=== PATIENT | female | born 1955 | race Caucasian/White ===

== ENCOUNTER → 2024-07-06 10:04 | Outpatient (REF) | payer BC, SELFPAY | LOC: HWWDC 10:04 | PROVIDERS: ATTENDING PHYSICIAN Nurse Practitioner Adult Health | DX: Z12.31 Encounter for screening mammogram for malignant neoplasm of breast (principal); Z76.89 Persons encountering health services in other specified circumstances; Z00.00 Encounter for general adult medical examination without abnormal findings; Z78.0 Asymptomatic menopausal state | CPT/HCPCS: 77063; 77067; 77080 ==

== ENCOUNTER → 2024-08-01 07:24 | Outpatient (REF) | payer BC, SELFPAY | LOC: PAVMRI 07:24 | PROVIDERS: ATTENDING PHYSICIAN Physician Assistant Surgical; FAMILY PHYSICIAN Nurse Practitioner Adult Health | DX: M54.16 Radiculopathy, lumbar region (principal) | CPT/HCPCS: 72148 ==

== ENCOUNTER 2025-03-09 14:24 | Inpatient (IN) | payer BC, SELFPAY ==
[2025-03-09] VITALS (24 sets, daily range): BP systolic 121–212; BP diastolic 66–98
--- NOTE | 2025-03-09 12:58 | ED.GENMED ---
History of Present Illness
General
Chief Complaint: Chest Pain
Time Seen by Provider: 03/09/25 12:56
History of Present Illness
History of Present Illness:
FOCUSED PAST MEDICAL HISTORY
- DM, HTN, hyperlipidemia
REVIEW OF OLD RECORDS
- I reviewed the call in note from Dr. Ac De Jesus; he sent her here due to accelerating angina and EKG at the office showed inferior anterolateral ST depression and T wave inversion.
Note:
CHIEF COMPLAINT(S)
Chest pain and burping.
HISTORY OF PRESENT ILLNESS
The patient is a 69-year-old female who presented with complaints of chest pain and burping. The symptoms started around August to September but have intensified significantly over the past month. The patient reports the chest pain is exacerbated in cold
environments and with exertion, such as walking quickly. She describes the pain as a tightness in the chest that worsened acutely the night before the visit. At the time of the encounter, the patient had chest discomfort and tightness. She denies
prior known coronary artery disease or history of stenting. The patient reports an iodine allergy, which causes skin rashes and blistering when applied. She has undergone imaging with IV contrast without pre-treatment with steroids. She was referred
to a certified nurses' aide after visiting her family doctor. No aspirin was taken prior to arrival, and there was an indication to start nitroglycerin and heparin in anticipation of a potential catheterization procedure. Her current EKG showed abnormalities.
PAST MEDICAL AND SURIGICAL HISTORY
- Diabetes
ADDITIONAL HISTORY OBTAINED FROM SOURCES OTHER THAN THE PATIENT
According to EMS, the patient was referred to the hospital after an abnormal EKG was noted during a visit to a certified nurses' aide.
CHRONIC MEDICAL CONDITIONS SIGNIFICANTLY AFFECTING CARE
- Diabetes
ALLERGIES
- Iodine (causes rash and blistering)
REVIEW OF SYSTEMS
- Cardiovascular: Chest pain, described as tightness, exacerbated by cold and exertion.
- Respiratory: Shortness of breath with exertion.
- Gastrointestinal: Burping.
PHYSICAL EXAM
General: Appears comfortable, alert, no acute distress.
Skin: Warm, dry.
Head: Normocephalic, atraumatic.
Neck: Supple, trachea midline.
Eyes, Ears, Nose, Mouth, and Throat: Oral mucosa moist.
Cardiovascular: Reports tightness in chest, hypertensive.
Respiratory: Lungs clear to auscultation, no edema, respirations are non-labored.
Gastrointestinal: Abdomen nondistended.
Back: Normal range of motion, normal alignment.
Musculoskeletal: Normal range of motion, normal strength.
Neurological: Alert and oriented to person, place, time, and situation, no focal neurological deficit observed.
Psychiatric: Cooperative, appropriate mood and affect.
PROBLEM LIST
Acute:
- Chest pain
- Shortness of breath
Chronic:
- Diabetes
PLAN
The patient is to be managed with nitroglycerin and heparin to alleviate chest pain. Cardiovascular catheterization is anticipated, and the cardiology team is to be notified for further intervention and management.
DIFFERENTIAL DIAGNOSIS
The Differential Diagnosis includes, in no particular order and is not limited to:
- Acute Coronary Syndrome
- Angina Pectoris
- Gastroesophageal Reflux Disease (GERD)
- Esophageal Spasm
- Pulmonary Embolism
- Aortic Dissection
- Pericarditis
- Costochondritis
- Anxiety/Panic Attack
- Heart Failure
RADIOLOGY
- Chest x-ray shows no acute abnormality
EKG
- Sinus [address] depression concerning for ACS with no old to compare
LABS
- Initial troponin less than 0.012
UPDATE
-SUMMARY OF ENCOUNTER
The patient is a 69-year-old female who presented to the emergency department with chest pain and burping. She has been experiencing chest tightness that worsens with cold and exertion, as well as increased burping and shortness of breath over the
past month. No prior history of coronary artery disease was noted. She underwent an EKG, which revealed marked abnormalities suggestive of possible cardiac issues. Given the concern for potential acute coronary syndrome, the patient was administered
heparin, aspirin, and nitroglycerin to manage her symptoms and prepare for potential catheterization. The cardiology team, specifically Dr. Arita, has been consulted and plans to admit the patient to the hospital for further evaluation, monitoring,
and possible catheterization. Due to the patients iodine allergy, the use of steroids was considered important for a potential procedure in the catheterization lab.
DISPOSITION
Admit
ASSESSMENT
The patient presents with symptoms that are concerning for acute coronary syndrome, given the exertional chest pain, abnormal EKG findings, and diabetes history, making her a high-risk candidate.
EMERGENCY TREATMENTS ADMINISTERED
Aspirin, heparin, nitroglycerin.
MANAGEMENT OF THE PATIENTS CARE WAS DISCUSSED WITH
Discussion held with Dr. Arita from cardiology regarding the patients treatment plan and potential catheterization.
PLAN
The patient is to be admitted to the cardiology service for further evaluation and potential cardiac catheterization. The patient is to remain NPO in preparation for the procedure, with considerations for applying steroids in the catheterization lab
due to her iodine allergy.
MEDICATION RECONCILIATION
1. Aspirin administered.
2. Heparin administered.
3. Nitroglycerin administered.
MEDICAL DECISION MAKING
1. Number and Complexity of Problems Addressed: Chronic conditions affecting care include diabetes. Differential diagnosis considerations span acute coronary syndrome, angina pectoris, gastroesophageal reflux disease, esophageal spasm, pulmonary
embolism, aortic dissection, pericarditis, costochondritis, anxiety/panic attack, and heart failure.
2. Data:
Category 1:
- Reviewed patients EKG, showing marked abnormalities.
- External information obtained supports current diagnosis and management.
Category 2:
- Independent history obtained from EMS records.
Category 3:
- Discussion of management plan with Dr. Arita from cardiology regarding further evaluation and admission.
3. Risk:
- Decisions regarding the use of emergency treatments, such as anticoagulants (heparin) and vasodilators (nitroglycerin), and the plan to admit and conduct a potential catheterization, reflect a high risk of morbidity if not managed appropriately.
DIAGNOSIS
Acute Coronary Syndrome (ICD-10: I20.0)
Phy Exam
Physical Exam
Physical Exam:
See HPI
Scores
Heart Score for Chest Pain Patients
STEMI patient?: Not applicable
Course
Orders/Labs/Results
Orders:
Orders
03/09/25 12:43
EKG [Electrocardiogram (*1)] Urgent
Reason for Study: Chest Pain
03/09/25 12:44
EKG- Treatment ONCE
03/09/25 12:56
Chest X-ray Portable [CR Chest Portable - 1 View] Stat
Comment:
Reason For Exam: cp
Reason Study Needs to be Portable: Patient Unstable
03/09/25 12:58
Nitroglycerin 100 mg/250 ml [Nitroglycerin Premix] 100 mg in 250 ml .ROUTE .STK-MED
03/09/25 13:00
Nitroglycerin 100 mg/250 ml [Nitroglycerin Premix] 100 mg in 250 ml IV PER PROTOCOL
Initial dose in mcg/min, then titrate:: 10
Titrate to keep:: Chest Pain Free
Titrate by mcg/min:: 5 mcg/min, may increase by 10 mcg/min if dose > 20 mcg/min
Frequency of titrations (minutes):: every 3-5 minutes
Maximum dose in mcg/min:: 200
Begin to taper infusion when:: Remained at goal for 2hrs
Taper by mcg/min:: 5 mcg/min
Frequency of taper (minutes) if patient maintains goal:: 30
Taper to off?: Yes
If infusion off & no longer maintaining goal:: Contact Provider
03/09/25 13:08
Complete Blood Count/With Diff Urgent
Comprehensive Metabolic Panel Urgent
Troponin I Urgent
03/09/25 13:19
Type+Screen Urgent
PTT Urgent
Prothrombin Time Urgent
03/09/25 13:47
Diphenhydramine [Benadryl] 50 mg IV NOW STA
Hydrocortisone Sod Succinate [Solu-Cortef] 200 mg IV NOW STA
03/09/25 13:51
Admit/Transfer Patient As Directed
Co-Sign Provider:
Level of Care: Inpatient admission
Assign to:: IVU
Physician / Group: do
Diagnosis: chest pain
Reason for Hospitalization: chest pain
Expected length of stay greater than two midnights?: Yes
ELOS- Estimated Length of Stay in days: 3
I certify the patient meets the requirements for IP care: Yes
PRN Pain Medication Management As Directed
May give lesser potent ordered pain med per pt: Yes
preference::
Protocol:: Medication orders for pain may be administered in a
manner that supports deferring to patient preference
when the pt is:
- Requesting an ordered lesser potent pain medication.
Least to most potent pain medications are defined
as: acetaminophen < NSAID < tramadol < opioids
(morphine, oxycodone, hydromorphone).
- Requesting a lesser dose of the same medication IF
ORDERED.
- Requesting a less intrusive route of administration
if both routes are prescribed by the provider (PO <
IV).
03/09/25 13:52
Code Status As Directed
Resuscitation Status: Full Code
03/09/25 Dinner
NPO
Allow oral meds: Yes
Allow clear liquids: Sips of Clears
NPO with Ice Chips: No
Abnormal Lab Results
03/09/25
13:08
Abs Immat Gran (auto) 0.1 H 10^3/uL
(0-0.05)
Absolute Neuts (auto) 7.2 H 10^3/uL
(1.4-6.5)
Immature Gran % 0.6 H %
(0-0.5)
Glucose 147 H mg/dl
(70-99)
Total Protein 8.6 H g/dl
(6.3-8.2)
03/09/25 13:08
03/09/25 13:08
Vital Signs
Initial and Last Documented VS:
Initial Vital Signs
Temp Pulse Resp BP Pulse Ox
36.6 C 84 18 212/93 97
03/09/25 12:50 03/09/25 12:50 03/09/25 12:50 03/09/25 12:50 03/09/25 12:50
Last Documented Vital Signs
Temp Pulse Resp BP Pulse Ox
36.6 C 86 15 155/83 98
03/09/25 12:50 03/09/25 13:30 03/09/25 13:30 03/09/25 13:30 03/09/25 13:30
*Pulse Oximetry
SaO2: 97
Oxygen Mode of Delivery: Room air
Patient hypoxic: no
*Critical Care Note
Total Time (30-74mins, 75-104mins- exclusive of procedures): Not Applicable
ED Attending Note
-
Portions of this chart may have been created with voice recognition software.� Occasional wrong word or��sound alike� substitutions may have occurred due to the inherent limitations of voice recognition software.
Discharge Plan
Departure
Patient Disposition: Admit
Date of Disposition: 03/09/25
Time of Disposition: 13:10
Presentation/result/management discussed w/ accepting MD/DO: CBC
Discharge Problem:
ACS (acute coronary syndrome)
Prescriptions:
No Action
esomeprazole magnesium [Nexium] 40 MG capsule,delayed release(DR/EC)
40 mg PO QPM
cholecalciferol (vitamin D3) [Vitamin D3] 2,000 UNIT capsule
2,000 unit PO QPM
metformin 500 mg Tablet
1,000 mg PO DAILY
metformin 500 mg Tablet
1,500 mg PO QPM
atorvastatin [Lipitor] 20 mg Tablet
20 mg PO QPM
cetirizine [Zyrtec] 10 mg Tablet
10 mg PO DAILY
amlodipine [Norvasc] 5 mg Tablet
5 mg PO QPM
aspirin 81 mg Tablet,Delayed Release (Dr/Ec)
81 mg PO QPM
losartan-hydrochlorothiazide 100-12.5 mg Tablet
1 tab PO DAILY
Visbiome 112.5 billion cell Capsule
1 cap PO DAILY
insulin degludec [Tresiba FlexTouch U-100] 100 unit/mL (3 mL) Insulin Pen
25 unit SC BID
Fiber Gummies 2 gram Tablet,Chewable
5 g PO DAILY
turmeric 400 mg Capsule
400 mg PO BID
Ozempic 1 mg/dose (4 mg/3 mL) Pen Injector
1 mg SC TU
biotin 2,500 mcg Tablet,Chewable
2,500 mcg PO DAILY
magnesium glycinate 120 mg Capsule
400 mg PO DAILY
Referrals:
UNKNOWN - PT NOT,INTERVIEWE [Unknown Provider]
Interventions
Interventions:
*Risk Screen - Suicide Last Done: 03/09/25 12:50
*General Assessment Last Done: 03/09/25 12:50
*Neglect/Abuse Screening Last Done: 03/09/25 12:50
*ED- Fall Risk Assessment Last Done: 03/09/25 13:28
*ED COVID-19 Vaccine History Last Done: 03/09/25 13:28
*ED Influenza Vaccine History Last Done: 03/09/25 13:28
ED- Cardiac Assessment Last Done: 03/09/25 13:13
Discharge Date and Time
Print Language: UGANDAN
[2025-03-09] MEDS: NITROGLYCERIN PREMIX 250 IV (13:06)
--- NOTE | 2025-03-09 13:15 | HPS.HSE ---
Addendum entered and electronically signed by Graham Trivedi MD 03/09/25 16:38:
69-year-old female with a past medical history of diabetes, hypertension, hyperlipidemia, and GERD was sent by her play writer for worsening exertional chest pain, shortness of breath, and burping.
Her EKG was markedly abnormal, and cardiology plans to take her for cardiac catheterization today.
Patient is allergic to iodine, she has severe vomiting and diarrhea with it.
She has insulin-dependent type 2 diabetes.
Will premedicate with IV Solu-Cortef, IV Benadryl, expect steroid-induced hyperglycemia.
Keep n.p.o., start IV heparin drip, continue nitroglycerin drip, trend troponins, trend EKG.
I have personally seen and examined the patient, and agree with the plan of care as documented by GIANNA Stevens.
Advance care planning discussed, patient is a full code.
All other issues as outlined by the advanced care practitioner.
Total time spent to see the patient on the floor, examine the patient, review data and lab results, discuss treatment plan with patient, nursing staff around 76 minutes.
Original Note:
Family Physician
-
Family Physician: INTERVIEWE UNKNOWN - PT NOT
Chief Complaint
-
chest discomfort
History of Present Illness
69-year-old female with PMH for HTn, HLD, DM type 2 presented to us with mid sternum chest tightness only with activity progressively worsening for past one month. patient denied non radiating pain. stated sob with exertion as well. patient
stated the pain got worse yesterday while she was out yesterday. today she was evaluated by cardiology, recommended ER visit.patient stated burping with stress. patient stated lot of stress for past few months as well. Patient denies any headache,
dizzy or syncope. Patient denied any fever, chills, cough, congestion. Patient denied abdominal pain, nausea, vomiting or diarrhea. Patient denied dysuria hematuria
initiated on iv with improvement in her pain.admitting for further management.
Medical History
Past Medical History
Past Medical History: Reports Other
Additional Past Medical History:
GERD, iron deficiency, HTN, DM, HLD, liver disease, Schatzki ring, HLD,diverticulosis, lumbar fusion, kdiney stones,
Past Surgical History: Reports Other
Additional Past Surgical History:
right partial knee replacement, right carpal release, removal of bone spur right shoulder, right ulnar nerve release and transposition, bilateral foot surgery, right partial knee replacement. left rotator cuff repair, right rotator cuff repair,
L3-L5 fusion, back surgery fusion,
Social History
Tobacco: Non-smoker
Alcohol: None
Drug: None
Personal:
Living: With Family
Family History
Family History: Not pertinent
Allergies / Home Medications
Allergies reflects when Allergies were last updated in [employer].
Home Medications with original date entered in [employer]
Allergy/Medication List:
Allergies
Allergy/AdvReac Type Severity Reaction Status Date / Time
alcohol (From Mastisol Allergy Intermediate Rash Verified 03/09/25 12:49
Adhesive)
gum mastic (From Mastisol Allergy Intermediate Rash Verified 03/09/25 12:49
Adhesive)
iodine Allergy Intermediate Rash Verified 03/09/25 12:49
methyl salicylate (From Allergy Intermediate Rash Verified 03/09/25 12:49
Mastisol Adhesive)
storax (From Mastisol Allergy Intermediate Rash Verified 03/09/25 12:49
Adhesive)
cold Allergy Unknown Uncoded 10/29/18 13:15
seafood Allergy Nausea / Uncoded 10/29/18 13:15
Vomiting
Home Medications
cholecalciferol (vitamin D3) 50 mcg (2,000 unit) capsule (Vitamin D3) 2,000 unit PO QPM Supplement 10/29/18
esomeprazole magnesium 40 mg capsule,delayed release (Nexium) 40 mg PO QPM Gastrointestinal Issue 10/29/18
Lactobac no.2-Bifidobac no.1-S. thermo 112.5 billion cell capsule (Visbiome) 1 cap PO DAILY Supplement 03/09/25
amlodipine 5 mg tablet (Norvasc) 5 mg PO QPM Blood Pressure 03/09/25
aspirin 81 mg tablet,delayed release 81 mg PO QPM Blood Clot Prevention/Tx 03/09/25
atorvastatin 20 mg tablet (Lipitor) 20 mg PO QPM High Cholesterol 03/09/25
biotin 2,500 mcg chewable tablet 2,500 mcg PO DAILY Supplement 03/09/25
cetirizine 10 mg tablet (Zyrtec) 10 mg PO DAILY Allergies 03/09/25
insulin degludec 100 unit/mL (3 mL) subcutaneous pen (Tresiba FlexTouch U-100 insulin) 25 unit SC BID Diabetes 03/09/25
inulin 2 gram chewable tablet 5 g PO DAILY Supplement 03/09/25
losartan 100 mg-hydrochlorothiazide 12.5 mg tablet 1 tab PO DAILY Blood Pressure 03/09/25
magnesium glycinate 120 mg (as glycinate) capsule 400 mg PO DAILY Supplement 03/09/25
metformin 500 mg tablet 1,000 mg PO DAILY Diabetes 03/09/25
metformin 500 mg tablet 1,500 mg PO QPM Diabetes 03/09/25
semaglutide 1 mg/dose (4 mg/3 mL) subcutaneous pen injector (Ozempic) 1 mg SC TU Diabetes 03/09/25
turmeric 400 mg capsule 400 mg PO BID Supplement 03/09/25
Review of Systems
-
Constitutional: Reports No Symptoms
EENT: Reports No Symptoms
Respiratory: Reports No Symptoms and Trouble Breathing
Cardiac: Reports Chest Pain
Abdomen/GI: Reports No Symptoms
: Reports No Symptoms
Musculoskeletal: Reports No Symptoms
Skin: Reports No Symptoms
Neurological: Reports No Symptoms
Endocrine: Reports No Symptoms
Hematologic/Lymphatic: Reports No Symptoms
Psych: Reports No Symptoms
Physical Exam
Vital Signs
Vital Signs
Temp Pulse Resp BP Pulse Ox
97.9 F 87 20 187/76 94
03/09/25 12:50 03/09/25 13:01 03/09/25 13:01 03/09/25 13:00 03/09/25 13:01
Physical Exam
General: Well Developed, Well Nourished and No Apparent Distress
HEENT: NormoCephalic, Moist mucous membranes and Atraumatic
Respiratory: Clear
Cardiac: S1/S2 and Regular Rhythm; No Murmur or Rub
GI: Soft, Non Tender, Non Distended and Normal Bowel Sounds; No Organomegaly
Rectal: Deferred by Provider
Musculoskeletal: No Clubbing, No Cyanosis and No Edema
Skin: No Rash
Neuro: Nonfocal/grossly intact
Data Reviewed
-
Lab Data: Labs Reviewed by me
Impression/Plan
-
#chest pain r/o NSTEMI
-asa, nitro drip, heparin drip
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
-cardiology consulted
-trend trop and EKG
- We will premedicate with hydrocortisone and Benadryl prior to cardiac cath
# Essential hypertension
- Norvasc continue with hold parameters
- Losartan/hydrochlorothiazide continue
# Hyperlipidemia
- Atorvastatin continue
#GERD
- PPI continued
# Type 2 diabetes
- Tresiba continued
- Sliding scale
- Hold metformin
# DVT prophylaxis
- Heparin subcu
#CODE STATUS
- Full code
[2025-03-09 13:18] LABS: Hematocrit 41.5 % (37.0-47.0); Hemoglobin 13.8 g/dL (12.0-16.0); Mean Corp Hgb Conc. 33.3 g/dL (33.0-37.0); Mean Corpuscular Volume 85.2 fL (81.0-99.0); Nucleated Red Blood Cells % 0 %; Platelet Count 365 10^3/uL (130-400); Red Cell Dist. Width 13.6 % (11.5-14.5)
[2025-03-09 13:32] LABS: ALT (SGPT) 21 U/L (0-35); AST (SGOT) 20 U/L (14-36); Albumin 5.0 g/dl (3.5-5.0); Alkaline Phosphatase 63 U/L (38-126); Blood Urea Nitrogen 16 mg/dl (7-17); Calcium 10.1 mg/dl (8.4-10.2); Carbon Dioxide 25 mmol/L (22-30); Chloride 100 mmol/L (98-107); Glucose 147 mg/dl (70-99); Potassium 3.7 mmol/L (3.5-5.1); Sodium 135 mmol/L (135-145); Total Protein 8.6 g/dl (6.3-8.2); eGFR > 60.00
[2025-03-09 13:45] LABS: Troponin I < 0.012 ng/ml
[2025-03-09 13:53] LABS: INR 0.99; PT 13.4 Sec (11.4-14.6)
[2025-03-09 13:54] LABS: APTT 29.9 Sec (23.4-35.0)
[2025-03-09] MEDS: SOLU-CORTEF 200 MG IV (14:01)
[2025-03-09] MEDS: BENADRYL 50 MG IV (14:01)
--- NOTE | 2025-03-09 14:33 | W.PN.CD ---
Addendum entered and electronically signed by Khoi Bills MD 03/09/25 17:29:
I saw and evaluated the patient, and I provided the substantive portion of the medical decision making.
I reviewed and agree with the note by GIANNA Barraza and it accurately reflects our care.
I personally performed the medical decision making of the this encounter and my assessment and plan is below:
Pain free now
Sent from office with impressive story, abnormal ekg and multiple risk factors
For cath
Original Note:
Today's Communication / Plan
-
*This is the consultation summary. Please see scanned consultation.*
Cardiac catheterization today.
Impression / Plan
-
I/P: 69F with HTN, IDDM, HLD, GERD, and orthopedic surgeries who presented for evaluation of exertional chest pain with associated LAMB in the cardiology office. She was referred to the emergency department for accelerating symptoms and EKG changes
in the inferior and anterolateral leads.
Primary spray gunner: Dr. De Jesus
Accelerating angina
- Chest discomfort with associated LAMB and burping, present since August worsening with rest discomfort
- EKG with inferior and anterolateral changes
- Troponin <0.012
- Echocardiogram
- Cardiac catheterization today
Hypertension
- BP currently stable, follow
Type 2 diabetes mellitus, with hyperglycemia, on insulin, HgbA1c pending
HLD, on atorvastatin 20 mg, may need to escalate therapy pending cardiac catheterization results, fasting lipid panel in a.m.
GERD, chronic, on Nexium
Obesity, BMI 33
Physical Exam
Vital Signs/Labs
Vital Signs
Temp Pulse Resp BP Pulse Ox
97.9 F 86 15 155/83 98
03/09/25 12:50 03/09/25 13:30 03/09/25 13:30 03/09/25 13:30 03/09/25 13:30
03/08/25 03/09/2503/10/25
06:59 06:59 06:59
Actual Weight 101.3 kg
03/09/25 13:08
03/09/25 13:08
PT 13.4 Sec (11.4-14.6) 03/09/25 13:19
INR 0.99 03/09/25 13:19
APTT 29.9 Sec (23.4-35.0) 03/09/25 13:19
LAB Results
03/09/25
13:08
Troponin I < 0.012
Physical Exam
Constitutional: No acute distress and Comfortable
EENT: Anicteric and Moist mucous membranes
Cardiovascular: Rhythm & rate is regular and Pedal edema is absent
Respiratory: Respiratory effort normal and Lungs clear to auscul.
GI: Soft, Distention absent, Flat, Non tender and Normal bowel sounds
Neuro/Psych: AO x 3
Other: Skin (Warm and dry without edema)
Data Reviewed
-
Date of Service: March 09, 2025
EKG: Report Reviewed by me
Labs: Labs Reviewed by me
Old Records: Reviewed
[2025-03-09] MEDS: HEPARIN 25000 UNITS/250 ML IV ×2 (15:10→22:09)
[2025-03-09] MEDS: HEPARIN 4000 UNITS IV (15:11)
--- NOTE | 2025-03-09 16:49 | CONSULT.CT ---
Consultation
-
Date/Time Consultation Requested: 03/09 1644
Date/Time Consultation Performed: 03/09 1650
Requesting Provider: Antoinette HAM
Performing Provider: Luis Armando Steve MD
Reason for Consultation: CABG Evaluation
Patient History
Physicians
Family Physician: Dr. Rosa Robles
Outpatient Photographic Hand Developer: Dr. De Jesus
Inpatient Photographic Hand Developer: Dr. De Jesus
History of Present Illness
69 y/o female with PMHx for HTN, IDDM, HLD, and multiple back surgeries has been having intermittent chest discomfort and burping for a few months. She initially presented to [facility] with an abnormal EKG from PCP and complaints of LAMB
and chest discomfort. She was send to [facility] ER from the meat cutter office. Troponin were negative in the ER. Echocardiogram was preformed and she was taken to the cardiac vat house laborer. LHC revealed MVD and CT surgery was consulted for surgical
evaluation.
Past Medical History
Past Medical History: Other
obesity, type 2 diabetes Home chronic GERD, HTN, liver disease, Schatzki's ring�dilatation, hyperlipidemia, HNP C4-C5, C5-C6, C6-C7 fusions in 1989, lumbar fusion, impaired swallowing since neck surgeries, diverticulosis,
Past Surgical History
Past Surgical History: Orthopedic
Family History
Family Medical History: CAD
Social History
Alcohol: Occasional
Drug: None
Tobacco: Non-Smoker
Personal:
Living: With Spouse
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
Allergies
Allergy/AdvReac Type Severity Reaction Status Date / Time
alcohol (From Mastisol Allergy Rash Verified 03/09/25 16:44
Adhesive)
gum mastic (From Mastisol Allergy Rash Verified 03/09/25 16:44
Adhesive)
iodine Allergy Rash Verified 03/09/25 16:44
methyl salicylate (From Allergy Rash Verified 03/09/25 16:44
Mastisol Adhesive)
storax (From Mastisol Allergy Rash Verified 03/09/25 16:44
Adhesive)
cold Allergy Unknown Uncoded 10/29/18 13:15
seafood Allergy Nausea / Uncoded 10/29/18 13:15
Vomiting
Home Medications
�Medication �Instructions �Recorded �Confirmed �Type
cholecalciferol (vitamin D3) 50 2,000 unit PO QPM Supplement 10/29/18 03/09/25 History
mcg (2,000 unit) capsule (Vitamin
D3)
esomeprazole magnesium 40 mg 40 mg PO QPM Gastrointestinal Issue 10/29/18 03/09/25 History
capsule,delayed release (Nexium)
Lactobac no.2-Bifidobac no.1-S. 1 cap PO DAILY Supplement 03/09/25 03/09/25 History
thermo 112.5 billion cell capsule
(Visbiome)
amlodipine 5 mg tablet (Norvasc) 5 mg PO QPM Blood Pressure 03/09/25 03/09/25 History
aspirin 81 mg tablet,delayed 81 mg PO QPM Blood Clot 03/09/25 03/09/25 History
release Prevention/Tx
atorvastatin 20 mg tablet (Lipitor) 20 mg PO QPM High Cholesterol 03/09/25 03/09/25 History
biotin 2,500 mcg chewable tablet 2,500 mcg PO DAILY Supplement 03/09/25 03/09/25 History
cetirizine 10 mg tablet (Zyrtec) 10 mg PO DAILY Allergies 03/09/25 03/09/25 History
insulin degludec 100 unit/mL (3 25 unit SC BID Diabetes 03/09/25 03/09/25 History
mL) subcutaneous pen (Tresiba
FlexTouch U-100 insulin)
inulin 2 gram chewable tablet 5 g PO DAILY Supplement 03/09/25 03/09/25 History
losartan 100 1 tab PO DAILY Blood Pressure 03/09/25 03/09/25 History
mg-hydrochlorothiazide 12.5 mg
tablet
magnesium glycinate 120 mg (as 400 mg PO DAILY Supplement 03/09/25 03/09/25 History
glycinate) capsule
metformin 500 mg tablet 1,000 mg PO DAILY Diabetes 03/09/25 03/09/25 History
metformin 500 mg tablet 1,500 mg PO QPM Diabetes 03/09/25 03/09/25 History
semaglutide 1 mg/dose (4 mg/3 mL) 1 mg SC TU Diabetes 03/09/25 03/09/25 History
subcutaneous pen injector (Ozempic)
turmeric 400 mg capsule 400 mg PO BID Supplement 03/09/25 03/09/25 History
Review of Systems
-
History Source: Patient
General: Reports Fatigue
HEENT: Reports No Symptoms
Respiratory: Reports SOB and LAMB
Cardiac: Reports Chest Pain
Abdomen/GI: Reports Reflux
: Reports No Symptoms
Musculoskeletal: Reports Joint Pain
Skin: Reports No Symptoms
Neurological: Reports No Symptoms
Vascular: Reports No Symptoms
Physical Exam
Vital Signs
Temp 97.9 F 03/09/25 12:50
Temp route: Oral 03/09/25 12:50
Pulse 106 03/09/25 16:00
Resp Rate 20 03/09/25 16:00
Blood pressure 161/82 03/09/25 16:00
MAP (cuff-Shannen Monitor) 101 03/09/25 16:00
SaO2 97 03/09/25 16:00
Oxygen Mode of Delivery Room air 03/09/25 12:59
Actual Weight 101.3 kg 03/09/25 13:00
Labs
03/09/25 13:08
03/09/25 13:08
PT 13.4 Sec (11.4-14.6) 03/09/25 13:19
APTT 29.9 Sec (23.4-35.0) 03/09/25 13:19
Troponin I < 0.012 ng/ml 03/09/25 13:08
Exam
General: Well Developed and Well Nourished
HEENT: Normocephalic
Respiratory: Clear
Cardiac: S1/S2 and Regular Rhythm
GI: Soft
Rectal: Deferred by Provider
Skin: Warm and Dry
Neuro: AO x 3
Lymph: No Lymphadenopathy
Psych: Calm
Assessment / Plan
-
69 y/o female with PMHx listed above presented to [facility] after being seen in the cardiology office with complaints of LAMB and chest discomfort. LHC reveal MVD and CT Surgery was consulted for surgical evaluation.
#CAD
-Patient's case will be discussed with attending physician. Further details regarding surgical timing intervention will be determined after attending physicians full evaluation
-Routine preoperative cardiothoracic surgery orders will be initiated.
-STS risk stratification score will be calculated after preoperative testing is complete
-Continue nitroglycerin gtt per cardiology
#DM II
- continue insuliin during work up.
#HTN
- Hold ARBs/STEPHANIE
--- NOTE | 2025-03-09 17:02 | ITS.CL.PN ---
Sales Marketing Coordinator - Procedure Note
Procedure
Procedure Note:
CARDIAC CATHETERIZATION REPORT
Date of Procedure: 03/09/2025
Referring: Dr. Ac De Jesus DO
Indication: Accelerating angina
PROCEDURE(S)
1. left heart catheterization
2. coronary angiography
ACCESS: 6F right radial artery (closure: radial band)
CATHETERS
1. 6F JR4
2. 6F JL4
MODERATE SEDATION: 25 minutes of moderate sedation was utilized. An independent medical customer service representative was present to assist with and help manage the patient's level of consciousness and physiologic status.
HEMODYNAMIC DATA
LV 153/9 (EDP 16) mmHg
AO 144/82 (mean 110) mmHg
CORONARY ANGIOGRAPHY
Dominance: right
LM: Large vessel with severe distal LM bifurcation disease (Almaraz 0,1,1) as further described below.
LAD: Large vessel giving rise to a moderate caliber D1 and wrapping around the apex. There is eccentric distal LM vs. ostial LAD disease that is likely mild-moderate in severity. There is a long segment of disease in the proximal LAD up to 80%.
LCx: Large vessel giving rise to a moderate caliber OM1 and moderate caliber OM2. There is a focal 95% stenosis in the ostial LCx with TIMI2 flow distally. There is a smooth 30% stenosis leading into the body of OM2.
RCA: Large vessel giving rise to moderate caliber RPDA, moderate caliber RPL1, moderate caliber RPL2, and small RPL3. There is a long segment of up to 80% disease in the [id number] RCA. The proximal RPDA has a long 40-50% stenosis.
RADIATION: dose 746 mGy; DAP 40.2 Gy*cm2; fluoroscopy time 4.3 min
CONCLUSIONS
1. Triple vessel coronary artery disease as defined with likely culprit ostial LCx stenosis.
2. Mildly elevated LV filling pressure and no aortic stenosis.
RECOMMENDATIONS
1. CT surgery consultation for consideration of surgical revascularization, ideally with ARGUELLO-LAD and additional grafts to the OM1(+/-OM2), RPDA, and RPL1 or 2.
2. Cont. heparin, metoprolol, ASA, statin
3. Do not give P2Y12 agents or RASS agents pending CT surgery
Copy to: Dr. Ac De Jesus MD (fast food shift lead); Anne Robles NP (PCP)
Signed: Leandro Curry MD, PhD
[2025-03-09 18:00] LABS: Glucose - Point of Care 146 mg/dl (70-99)
[2025-03-09] MEDS: LIPITOR 40 MG PO (18:25)
[2025-03-09] MEDS: NORVASC 5 MG PO (18:25)
[2025-03-09] MEDS: ASPIR LOW (ENTERIC COATED) 81 MG PO (18:26)
[2025-03-09] MEDS: PROTONIX 40 MG PO (18:26)
[2025-03-09 18:30] LABS: Troponin I < 0.012 ng/ml
--- NOTE | 2025-03-09 19:21 | PTCARENOTE ---
Received pt from [facility] into 2250. AAOx3 SR on the monitor Nitro gtt on for CP see flowsheet. Rt Radial TR band in place distal pulse ox 95%. POC discussed with pt. Call jensen within reach
[2025-03-09] MEDS: LANTUS 0.2 UNITS SC (20:07)
[2025-03-09 20:08] LABS: Glucose - Point of Care 144 mg/dl (70-99)
[2025-03-09 21:38] LABS: Troponin I 0.017 ng/ml
[2025-03-09 22:53] LABS: Glucose - Point of Care 153 mg/dl (70-99)
[2025-03-09] MEDS: MELATONIN 3 MG PO (23:06)
--- NOTE | 2025-03-09 23:11 | PTCARENOTE ---
Received patient at change of shift. ST on the monitor, HR in the 100s. R radial band removed as per protocol, R radial dressing CDI. Nitro running as per protocol, see documentation. No chest pain at this time. Heparin restarted as per order, see
documentation. No complaints from pt at this time, call jensen within reach.
[2025-03-10] VITALS (8 sets, daily range): BP systolic 112–158; BP diastolic 67–79; BMI 32.8
[2025-03-10 04:37] LABS: Hematocrit 34.3 % (37.0-47.0); Hemoglobin 11.9 g/dL (12.0-16.0); Mean Corp Hgb Conc. 34.7 g/dL (33.0-37.0); Mean Corpuscular Volume 83.9 fL (81.0-99.0); Platelet Count 314 10^3/uL (130-400); Red Cell Dist. Width 13.5 % (11.5-14.5)
[2025-03-10 05:05] LABS: ALT (SGPT) 18 U/L (0-35); AST (SGOT) 17 U/L (14-36); Albumin 4.1 g/dl (3.5-5.0); Alkaline Phosphatase 53 U/L (38-126); Blood Urea Nitrogen 18 mg/dl (7-17); Calcium 9.5 mg/dl (8.4-10.2); Carbon Dioxide 24 mmol/L (22-30); Chloride 106 mmol/L (98-107); Estimated Creatinine Clearance 80 ml/min; Glucose 93 mg/dl (70-99); HDL Cholesterol 30 mg/dl; LDL Cholesterol, Calculated 84 mg/dl; Potassium 3.6 mmol/L (3.5-5.1); Sodium 137 mmol/L (135-145); Total Protein 6.8 g/dl (6.3-8.2); Very Low Density Lipoprotein 35 mg/dl (0-30); eGFR > 60.00
[2025-03-10 05:13] LABS: INR 1.03; PT 13.8 Sec (11.4-14.6)
[2025-03-10 05:14] LABS: APTT 37.9 Sec (23.4-35.0)
[2025-03-10] MEDS: ORETIC 12.5 MG PO (07:43)
--- NOTE | 2025-03-10 08:28 | W.PN.CD ---
Today's Communication / Plan
-
Echo.
Surgical planning.
Impression / Plan
-
Impression/Plan: 69F with HTN, IDDM, HLD, GERD, and orthopedic surgeries admitted from office with accelerating/unstable angina, found to have severe multivessel CAD.
Primary technology development intern: Dr. De Jesus
#Accelerating angina/CAD
-New diagnosis, threat to life.
-Chest discomfort with associated LAMB and eructation, present since May worsening with rest discomfort.
-EKG with inferior and anterolateral changes.
-Troponin = 0.017.
-Cath shows severe multivessel CAD.
-CT surgery consulted.
-Continue amlodipine, atorvastatin, heparin gtt, nitro gtt.
-Echo pending.
#Hypertension
-Chronic, stable.
-Continue amlodipine, HCTZ, nitroglycerin.
#Type 2 diabetes mellitus
-Chronic, stable.
-Insulin per protocol.
-HgbA1c pending.
#HLD
-Chronic.
-Total cholesterol = 149, LDL = 84, HDL = 30, Triglycerides = 175.
-Continue atorvastatin 40 mg.
-Goal LDL < 55.
#GERD
-Chronic, stable.
-Continue PPI.
#Obesity
-Chronic, stable, BMI 33.
-Weight loss recommended.
-There is now an indication for GLP-1 analog.
Subjective/Interval History:
Admitted from office yesterday.
Cath shows severe multivessel CAD.
DATA:
Cardiac Catheterization, 03/09/2025:
CORONARY ANGIOGRAPHY
Dominance: right
LM: Large vessel with severe distal LM bifurcation disease (Almaraz 0,1,1) as further described below.
LAD: Large vessel giving rise to a moderate caliber D1 and wrapping around the apex. There is eccentric distal LM vs. ostial LAD disease that is likely mild-moderate in severity. There is a long segment of disease in the proximal LAD up to 80%.
LCx: Large vessel giving rise to a moderate caliber OM1 and moderate caliber OM2. There is a focal 95% stenosis in the ostial LCx with TIMI2 flow distally. There is a smooth 30% stenosis leading into the body of OM2.
RCA: Large vessel giving rise to moderate caliber RPDA, moderate caliber RPL1, moderate caliber RPL2, and small RPL3. There is a long segment of up to 80% disease in the [id number]-[id number] RCA. The proximal RPDA has a long 40-50% stenosis.
CONCLUSIONS
1. Triple vessel coronary artery disease as defined with likely culprit ostial LCx stenosis.
2. Mildly elevated LV filling pressure and no aortic stenosis.
Physical Exam
Vital Signs/Labs
Vital Signs
Temp Pulse Resp BP Pulse Ox
36.7 C 69 20 132/79 93
03/10/25 07:19 03/10/25 04:30 03/10/25 07:19 03/10/25 04:18 03/10/25 07:19
03/08/25 03/09/25 03/10/25
11:59 11:59 11:59
Actual Weight 97.8 kg
03/10/25 04:28
03/10/25 04:28
PT 13.8 Sec (11.4-14.6) 03/10/25 04:27
INR 1.03 03/10/25 04:27
APTT 37.9 Sec (23.4-35.0) H 03/10/25 04:27
Triglycerides 175 mg/dl (10-149) H 03/10/25 04:28
LDL Cholesterol, Calc 84 mg/dl 03/10/25 04:28
VLDL Cholesterol, Calc 35 mg/dl (0-30) H 03/10/25 04:28
HDL Cholesterol 30 mg/dl 03/10/25 04:28
LAB Results
03/09/25 03/09/25 03/09/25
13:08 17:58 21:05
Troponin I < 0.012 < 0.012 0.017 D
03/09/25
23:27
Troponin I Cancelled
Physical Exam
Constitutional: No acute distress and Comfortable
EENT: Anicteric and Moist mucous membranes
Cardiovascular: Rhythm & rate is regular, Pedal edema is absent, JVD pressure is normal, S1S2 is normal and Murmur/rub/gallop absent
Respiratory: Respiratory effort normal, Lungs clear to auscul., Wheeze Absent, Crackles Absent and Rhonchi Absent
GI: Soft, Distention absent, Flat, Non tender and Normal bowel sounds
Neuro/Psych: AO x 3
Other: Cath Site (Right radial access site is C/D/I.)
Data Reviewed
-
Date of Service: March 10, 2025
Medical Decision Making: Reviewed Test Results, Independent Historian Assessment and Test Interpretation
EKG: Tracing Personally Visualized and interpreted and Report Reviewed by me
X-Ray/CT/US/MRI/NUC/PET: Image Personally Visualized and interpreted and Report Reviewed by me
Medical Tests (PFT, Pathology etc): Image Personally Visualized and interpreted, Report Reviewed by me and Discussed with Patient
Labs: Labs Reviewed by me
Old Records: Reviewed
[2025-03-10 09:03] LABS: Glycohemoglobin (HgbA1c) 6.6 % (4.0-5.9)
[2025-03-10 09:18] LABS: Glucose - Point of Care 118 mg/dl (70-99)
--- NOTE | 2025-03-10 09:29 | W.PN.HOSP.TC ---
Today's Communication/Plan
-
see bold
Assessment / Plan
Assessment / Plan
HPI: 69F with HTN, IDDM, HLD, GERD, and orthopedic surgeries sent to ED from office with accelerating/unstable angina, found to have severe multivessel CAD.
Primary infrastructure security architect: Dr. De Jesus
#Multivessel CAD/accelerating angina
Troponins negative, EKG showing inferior and anterolateral changes
Appreciate cardiology input, 03/09 cardiac catheterization showing multivessel coronary artery disease
CT surgery consulted for possible surgical intervention
Continue amlodipine, atorvastatin, heparin gtt, nitro gtt.
#Hyperlipidemia
LDL 84
Goal LDL less than 55
Home atorvastatin 20 mg increased to 40 mg daily
#Essential hypertension
Continue amlodipine, hydrochlorothiazide
Holding losartan
#Type 2 diabetes
Hemoglobin A1c controlled at 6.6
Continue home insulin regimen, carb controlled diet
Hold metformin
#GERD
Continue PPI
#Obesity due to excess calories
Affects all aspects of care
DVT prophylaxis�heparin drip
Full code
Total time spent to see the patient on the floor, examine the patient, review data and lab results, discuss treatment plan with patient, nursing staff around 36 minutes.
Physical Exam
General: Obese, no acute distress
HEENT: Normocephalic, Atraumatic, EOMI, MMM
Respiratory: Clear to Auscultation bilaterally
Cardiac: Normal S1/S2, Regular Rate and Rhythm
GI: Soft, Nontender, Nondistended, Normal Bowel Sounds
Extremities: No Clubbing, Cyanosis, or Edema
Neuro: Nonfocal/Grossly Intact
Psych: Calm, Cooperative
Anticipated Discharge: > 48 hours
Subjective/Interval History
-
Date of Service: March 10, 2025
Patient reports that her chest pain and dyspnea with exertion have resolved. Her burping has improved. No abdominal pain. No fever, no vomiting.
Objective Data
-
Labs:
Laboratory Results
03/10/25 03/10/25 03/10/25
04:27 04:28 12:00
WBC 10.9 H
Hgb 11.9 L
Hct 34.3 L
Plt Count 314
PT 13.8
INR 1.03
APTT 37.9 H Pending
Sodium 137
Potassium 3.6
Chloride 106
Carbon Dioxide 24
BUN 18 H
Creatinine 0.8
Glucose 93
Calcium 9.5
Total Bilirubin 0.5
AST 17
ALT 18
Alkaline Phosphatase 53
Vital Signs:
Vital Signs
Temp Pulse Resp BP Pulse Ox
98.1 F 73 20 134/70 93
03/10/25 07:19 03/10/25 08:45 03/10/25 07:19 03/10/25 07:19 03/10/25 07:19
I&O
03/09/25 03/10/25 03/11/25
06:59 06:59 06:59
Output Total 300 / 300
Balance -300 / -300
[2025-03-10] MEDS: LANTUS 0.2 UNITS SC ×2 (10:00→21:07)
--- NOTE | 2025-03-10 10:30 | CM ---
Chart reviewed. Patient is independent of ADLS, lives with her in a 1 story mobile home, 1.5 VIANCA, patient had a lumbar fusion in the past and has been doing outpatient PT ever since at [facility], patient ambulates with with
a SPC for long distances and also has crutches.
Reviewed preoperative and postoperative instructions and restrictions, along with showering guidelines. Gave patient a Cardiac Surgery Book. Patient is agreeable to a home visit by CT Transitional RN. PANKAJ to follow
[2025-03-10 12:29] LABS: Glucose - Point of Care 152 mg/dl (70-99)
[2025-03-10 12:53] LABS: APTT 24.8 Sec (23.4-35.0)
[2025-03-10 13:58] LABS: Glucose - Point of Care 126 mg/dl (70-99)
--- NOTE | 2025-03-10 14:24 | W.PN.UPDATE ---
Update Note
Progress Note Update
Procedure Type:�Isolated CABG
Perioperative Outcome Estimate %
Operative Mortality 1.43%
Morbidity & Mortality 6.47%
Stroke 1.11%
Renal Failure 0.921%
Reoperation 1.48%
Prolonged Ventilation 3.33%
Deep Sternal Wound Infection 0.712%
Long Hospital Stay (>14 days) 3.95%
Short Hospital Stay (<6 days)* 39.3%
Clinical Summary
Planned Surgery: Isolated CABG, Urgent, First cardiovascular surgery
Demographics: 69 year old, female, 101kg, 173cm, BMI: 33.8 kg/m�
Lab Values: Creatinine: 0.8 mg/dL, Hematocrit: 34.3%, WBC Count: 10.9 10�/�L, Platelet Count: 118032 cells/�L
PreOp Medications: Insulin diabetes control
Substance Abuse: Former smoker, Alcohol use: <=1 drink/week
Risk Factors / Comorbidities: Insulin-dependent Diabetes Mellitus, Hypertension, Family Hx of CAD
Coronary Artery Disease: 3 vessels diseased, Left Main Stenosis >=50%, Proximal LAD Stenosis >=70%, Unstable Angina, DC: > 21 Days
Valve Disease: Trivial/Trace MR, Trivial/Trace TR
.
Tentative surgery date is 03/[address] Steve
[2025-03-10 14:51] LABS: Hepatitis C Antibody Negative (Negative)
--- NOTE | 2025-03-10 16:25 | W.CVOR.SURPR ---
CVOR Surgeon Immed Pre Op
-
I have examined this patient prior to performance of the scheduled procedure.
The patient's condition is unchanged from the time of the dictated/written History and
Physical and the patient is able to undergo the scheduled procedure.
Mrs. Hicks is a very pleasant 69-year-old female with coronary artery disease with escalating symptoms presented through [facility] emergency department after visit with her test lead application testing for ongoing worsening symptoms. Other medical problems include
hypertension, type 2 diabetes, hyperlipidemia and GERD. Her workup here shows ST changes in the lateral leads with T wave inversions in the inferior and anterior leads, cath with multivessel disease in her LAD, ostial circumflex, and RCA. I
reviewed her echo which notes normal EF without significant regional wall motion abnormalities and no valvular disease. Her surgical workup is nonconcerning, CT chest does show her ascending aorta slightly enlarged at 4 cm. I have discussed with
her about the benefits of surgical revascularization given her extent of disease and diabetes, noting mortality benefit with surgical intervention. I think she will do well and can recover from this operation. I have discussed the specifics of her
procedure and have gone through all the risks associated including but not limited to stroke, risk of bleeding, risk of infection, pulmonary related complications, and kidney injury. She has acceptable surgical risk, with operative mortality 1.4%.
She and her both understand and wish to proceed with an operation which we will do tomorrow morning.
[2025-03-10 17:30] LABS: Glucose - Point of Care 149 mg/dl (70-99)
[2025-03-10] MEDS: LIPITOR 40 MG PO (17:44)
[2025-03-10] MEDS: ASPIR LOW (ENTERIC COATED) 81 MG PO (17:44)
[2025-03-10] MEDS: HEPARIN 25000 UNITS/250 ML IV (17:45)
[2025-03-10] MEDS: PROTONIX 40 MG PO (17:49)
--- NOTE | 2025-03-10 18:06 | PTCARENOTE ---
~8596-7160: handoff report received from nightshift RN. PT Aox4, NSR 70s-80s, SBP 130s, RA satting 97%. +2 pulses. no edema noted. Patient does not c/o pain at this time. Heparin gtt infusing at 1200, nitro gtt infusing at 30. R radial site CDI and
soft. patient standby assit to bathroom. Weight obtained this AM. Patient tacken to CT scan and US for preop testing via stretcher. All needs met at this time, call jensen within reach.
~[id number]: Patient returned to unit via stretcher from US and CT scan. Dr De Jesus in to speak with patient about plan of care. Patient taken via stretcher for ECHO.
~[id number]: PTT drawn and sent to lab. Heparin gtt titrated per protocol. CTS in to speak with patient about plan for surgery tomorrow AM. Patient scheduled to be NPO at 0000. Patient OOB in chair.
~[id number]: Family at bedside visiting. Belongings packed up and brought to new room in CVICU. Patient will be prepped for surgery overnight and to CVOR tomorrow. Handoff report given to receiving nurse.
--- NOTE | 2025-03-10 19:45 | PTCARENOTE ---
assumed care of pt from previous RN. pt A&Ox4, resting in chair at time of assessment. SR on tele-monitor. POX 93% on RA. abd s/n, +BS. PIV x2 intact. see worklist for complete nursing assessment, interventions, gtt titrations, VS, and I&Os. plan of
care discussed w/ pt, pt in agreement.
[2025-03-10 19:59] LABS: APTT 43.7 Sec (23.4-35.0)
--- NOTE | 2025-03-10 21:00 | PTCARENOTE ---
pt clipped for CVOR. washed w/ CHG soap.
[2025-03-10 21:08] LABS: Glucose - Point of Care 172 mg/dl (70-99)
[2025-03-10] MEDS: MELATONIN 3 MG PO (21:53)
[2025-03-11] VITALS (14 sets, daily range): BP systolic 84–170; BP diastolic 51–85; BMI 34.0
[2025-03-11 02:31] LABS: Hematocrit 36.2 % (37.0-47.0); Hemoglobin 11.9 g/dL (12.0-16.0); Mean Corp Hgb Conc. 32.9 g/dL (33.0-37.0); Mean Corpuscular Volume 87.0 fL (81.0-99.0); Platelet Count 297 10^3/uL (130-400); Red Cell Dist. Width 13.6 % (11.5-14.5)
[2025-03-11 02:42] LABS: APTT 72.2 Sec (23.4-35.0)
[2025-03-11 03:00] LABS: Blood Urea Nitrogen 18 mg/dl (7-17); Calcium 9.6 mg/dl (8.4-10.2); Carbon Dioxide 26 mmol/L (22-30); Chloride 103 mmol/L (98-107); Estimated Creatinine Clearance 90 ml/min; Glucose 126 mg/dl (70-99); Potassium 3.6 mmol/L (3.5-5.1); Sodium 134 mmol/L (135-145); eGFR > 60.00
[2025-03-11] MEDS: MAGNESIUM OXIDE 400 MG PO (05:08)
[2025-03-11] MEDS: KCL 40 MEQ PO (05:08)
[2025-03-11] MEDS: LOPRESSOR 25 MG PO (05:08)
[2025-03-11] MEDS: PROTONIX 40 MG PO (05:08)
[2025-03-11] MEDS: BACTROBAN 2% OINTMENT 1 APPLIC NASAL ×2 (05:18→20:03)
[2025-03-11 07:07] LABS: ACT+ - POC 137 Seconds (82-134)
[2025-03-11 07:43] LABS: Urine Character Clear (Clear)
--- NOTE | 2025-03-11 08:10 | CM ---
Reviewed chart. Mrs. Hicks is in the operating room today. Prior to admission she resides with her spouse in a mobile home with two steps to enter. Will need to see her functional level after surgery to see if she will have any skilled care needs.
Medical work-up in progress. The discharge plan is undetermined at this time.
[2025-03-11 08:37] LABS: Urine Squamous Cell 0-2 /LPF (Few); Urine Urothelial Cell 0-2 /LPF (FEW)
[2025-03-11 08:38] LABS: Urine Red Blood Cell 0-2 /HPF (0-2)
[2025-03-11 09:06] LABS: ACT+ - POC 444 Seconds (82-134)
[2025-03-11 09:39] LABS: B.E. - POC -3.0 mmol/L; Glucose - POC 157 mg/dl (70-99); HCO3 - POC 22 mmol/L (21-28); Hematocrit - POC 35 % PCV (37-47); Hemodilution- POC No; Hemoglobin Calculated - POC 11.7; Ionized Calcium - POC 1.30 mmol/L (1.15-1.33); Lactate - POC 1.10 mmol/L (0.36-0.75); O2 Saturation %Calculated-POC 99.7 % (94-98); PCO2 - POC 40 mmHg (35-48); PO2 - POC 205 mmHg (83-108); POC Comment PRE; Potassium - POC 3.3 mmol/L (3.5-5.1); Sodium - POC 138 mmol/L (136-145); Specimen Type - POC Arterial; pH - POC 7.35 (7.35-7.45)
[2025-03-11 10:02] LABS: ACT+ - POC 534 Seconds (82-134)
[2025-03-11 10:02] LABS: ACT+ - POC 520 Seconds (82-134)
[2025-03-11 10:08] LABS: B.E. - POC 2.2 mmol/L; Glucose - POC 146 mg/dl (70-99); HCO3 - POC 27 mmol/L (21-28); Hematocrit - POC 26 % PCV (37-47); Hemodilution- POC Yes; Hemoglobin Calculated - POC 9.0; Ionized Calcium - POC 1.09 mmol/L (1.15-1.33); Lactate - POC 1.68 mmol/L (0.36-0.75); O2 Saturation %Calculated-POC 100.0 % (94-98); PCO2 - POC 39 mmHg (35-48); PO2 - POC 454 mmHg (83-108); POC Comment CPB; Potassium - POC 4.5 mmol/L (3.5-5.1); Sodium - POC 137 mmol/L (136-145); Specimen Type - POC Arterial; pH - POC 7.44 (7.35-7.45)
[2025-03-11 10:18] LABS: ACT+ - POC 500 Seconds (82-134)
[2025-03-11 10:29] LABS: B.E. - POC 0.9 mmol/L; Glucose - POC 201 mg/dl (70-99); HCO3 - POC 25 mmol/L (21-28); Hematocrit - POC 30 % PCV (37-47); Hemodilution- POC Yes; Hemoglobin Calculated - POC 10.2; Ionized Calcium - POC 1.13 mmol/L (1.15-1.33); Lactate - POC 1.49 mmol/L (0.36-0.75); O2 Saturation %Calculated-POC 99.8 % (94-98); PCO2 - POC 39 mmHg (35-48); PO2 - POC 213 mmHg (83-108); POC Comment CPB; Potassium - POC 5.3 mmol/L (3.5-5.1); Sodium - POC 139 mmol/L (136-145); Specimen Type - POC Arterial; pH - POC 7.42 (7.35-7.45)
[2025-03-11 10:36] LABS: ACT+ - POC 497 Seconds (82-134)
[2025-03-11 11:08] LABS: B.E. - POC -0.6 mmol/L; Glucose - POC 197 mg/dl (70-99); HCO3 - POC 24 mmol/L (21-28); Hematocrit - POC 29 % PCV (37-47); Hemodilution- POC Yes; Hemoglobin Calculated - POC 9.9; Ionized Calcium - POC 1.19 mmol/L (1.15-1.33); Lactate - POC 1.17 mmol/L (0.36-0.75); O2 Saturation %Calculated-POC 99.8 % (94-98); PCO2 - POC 38 mmHg (35-48); PO2 - POC 240 mmHg (83-108); POC Comment WARM; Potassium - POC 4.4 mmol/L (3.5-5.1); Sodium - POC 136 mmol/L (136-145); Specimen Type - POC Arterial; pH - POC 7.41 (7.35-7.45)
[2025-03-11 11:15] LABS: ACT+ - POC 456 Seconds (82-134)
[2025-03-11 11:35] LABS: B.E. - POC -1.9 mmol/L; Glucose - POC 209 mg/dl (70-99); HCO3 - POC 23 mmol/L (21-28); Hematocrit - POC 31 % PCV (37-47); Hemodilution- POC Yes; Hemoglobin Calculated - POC 10.7; Ionized Calcium - POC 1.33 mmol/L (1.15-1.33); Lactate - POC 2.19 mmol/L (0.36-0.75); O2 Saturation %Calculated-POC 99.9 % (94-98); PCO2 - POC 41 mmHg (35-48); PO2 - POC 274 mmHg (83-108); POC Comment CPB; Potassium - POC 5.0 mmol/L (3.5-5.1); Sodium - POC 140 mmol/L (136-145); Specimen Type - POC Arterial; pH - POC 7.36 (7.35-7.45)
[2025-03-11] MEDS: LANTUS SC (11:37)
[2025-03-11] MEDS: ORETIC PO (11:37)
[2025-03-11 11:40] LABS: ACT+ - POC 140 Seconds (82-134)
--- NOTE | 2025-03-11 11:50 | W.PN.CD ---
Today's Communication / Plan
-
CABG today.
Anticipate routine post operative management.
Impression / Plan
-
Impression/Plan: 69F with HTN, IDDM, HLD, GERD, and orthopedic surgeries admitted from office with accelerating/unstable angina, found to have severe multivessel CAD.
Primary physician anesthesiologist: Dr. De Jesus
#Accelerating angina/CAD
-New diagnosis, threat to life.
-Chest discomfort with associated LAMB and eructation, present since May worsening with rest discomfort.
-EKG with inferior and anterolateral changes.
-Troponin = 0.017.
-Cath shows severe multivessel CAD.
-CABG today.
-Anticipate routine post operative management.
-Wean vent to extubation.
-Titrate pressors/inotropes to MAP > 65 mmHg, CI > 1.8 L/min/m2.
#Hypertension
-Chronic, stable.
-Continue amlodipine, HCTZ, nitroglycerin.
#Type 2 diabetes mellitus
-Chronic, stable.
-Insulin per protocol.
-HgbA1c pending.
#HLD
-Chronic.
-Total cholesterol = 149, LDL = 84, HDL = 30, Triglycerides = 175.
-Continue atorvastatin 40 mg.
-Goal LDL < 55.
#GERD
-Chronic, stable.
-Continue PPI.
#Obesity
-Chronic, stable, BMI 33.
-Weight loss recommended.
-There is now an indication for GLP-1 analog.
Subjective/Interval History:
CABG today.
DATA:
Cardiac Catheterization, 03/09/2025:
CORONARY ANGIOGRAPHY
Dominance: right
LM: Large vessel with severe distal LM bifurcation disease (Almaraz 0,1,1) as further described below.
LAD: Large vessel giving rise to a moderate caliber D1 and wrapping around the apex. There is eccentric distal LM vs. ostial LAD disease that is likely mild-moderate in severity. There is a long segment of disease in the proximal LAD up to 80%.
LCx: Large vessel giving rise to a moderate caliber OM1 and moderate caliber OM2. There is a focal 95% stenosis in the ostial LCx with TIMI2 flow distally. There is a smooth 30% stenosis leading into the body of OM2.
RCA: Large vessel giving rise to moderate caliber RPDA, moderate caliber RPL1, moderate caliber RPL2, and small RPL3. There is a long segment of up to 80% disease in the [id number] RCA. The proximal RPDA has a long 40-50% stenosis.
CONCLUSIONS
1. Triple vessel coronary artery disease as defined with likely culprit ostial LCx stenosis.
2. Mildly elevated LV filling pressure and no aortic stenosis.
CT Chest, 03/10/2025:
IMPRESSION:
Fusiform aneurysmal dilatation of the ascending aorta measuring up to 4 cm.
Subtle pulmonary parenchymal mosaic attenuation which is nonspecific, though may be associated with obstructive small airway disease, or other nonspecific pulmonary parenchymal disease.
Right upper lobe 5 mm pulmonary nodule. Left upper lobe 3.5 mm nodule.
2.2 cm right adrenal benign adenoma.
Carotid Artery Duplex, 03/10/2025:
IMPRESSION: Negative for flow-limiting carotid stenosis. By velocity criteria, any internal carotid artery stenosis present is in the range of 0-49%.
TTE, 03/10/2025:
SUMMARY
1. Normal biventricular size and systolic function without regional wall motion abnormality. LVEF 68%.
2. No significant valvular disease.
3. Ascending aorta measures 4.2 cm.
4. No prior study available for comparison.
Physical Exam
Vital Signs/Labs
Vital Signs
Temp Pulse Resp BP Pulse Ox
36.6 C 75 16 170/85 95
03/11/25 04:53 03/11/25 05:08 03/11/25 04:53 03/11/25 05:08 03/11/25 04:53
03/09/25 03/10/25 03/11/25
11:59 11:59 11:59
Actual Weight 97.8 kg 96.9 kg
PT 13.8 Sec (11.4-14.6) 03/10/25 04:27
INR 1.03 03/10/25 04:27
APTT Cancelled 03/11/25 09:00
Triglycerides 175 mg/dl (10-149) H 03/10/25 04:28
LDL Cholesterol, Calc 84 mg/dl 03/10/25 04:28
VLDL Cholesterol, Calc 35 mg/dl (0-30) H 03/10/25 04:28
HDL Cholesterol 30 mg/dl 03/10/25 04:28
LAB Results
03/09/25 03/09/25 03/09/25
13:08 17:58 21:05
Troponin I < 0.012 < 0.012 0.017 D
03/09/25
23:27
Troponin I Cancelled
Physical Exam
Constitutional: No acute distress and Comfortable
EENT: Other (ET tube in place.)
Neuro/Psych: Other (Intubated/sedated.)
Patient is currently undergoing CABG. Exam limited.
Data Reviewed
-
Date of Service: March 11, 2025
Medical Decision Making: Reviewed Test Results and Test Interpretation
EKG: Tracing Personally Visualized and interpreted and Report Reviewed by me
Echo: Tracing Personally Visualized and interpreted and Report Reviewed by me
X-Ray/CT/US/MRI/NUC/PET: Image Personally Visualized and interpreted and Report Reviewed by me
Medical Tests (PFT, Pathology etc): Image Personally Visualized and interpreted and Report Reviewed by me
Labs: Labs Reviewed by me
Old Records: Reviewed
[2025-03-11 11:52] LABS: B.E. - POC -3.2 mmol/L; Glucose - POC 184 mg/dl (70-99); HCO3 - POC 22 mmol/L (21-28); Hematocrit - POC 29 % PCV (37-47); Hemodilution- POC Yes; Hemoglobin Calculated - POC 10.0; Ionized Calcium - POC 1.32 mmol/L (1.15-1.33); Lactate - POC 2.37 mmol/L (0.36-0.75); O2 Saturation %Calculated-POC 100.0 % (94-98); PCO2 - POC 37 mmHg (35-48); PO2 - POC 410 mmHg (83-108); Potassium - POC 3.8 mmol/L (3.5-5.1); Sodium - POC 139 mmol/L (136-145); Specimen Type - POC Arterial; pH - POC 7.38 (7.35-7.45)
--- NOTE | 2025-03-11 12:10 | CON.INTV ---
Consultation
Consultation Request
Date/Time Consultation Requested: 03/11/2025 - 113
Date/Time Consultation Performed: 03/11/2025 - 1201
Requesting Provider: Jenny Greco PA-C
Performing Provider: Dr. Batista
Reason for Consultation: s/p CABG x3
Medical History
-
Chief Complaint: Chest pain
History of Present Illness:
69-year-old female with a past medical history of DM type II, hypertension, mixed hyperlipidemia, history of C4-5 anterior fusion, history of kidney stones, Schatzki's ring s/p dilation, cold urticaria, and obesity who presented with midsternal
chest pain and increased belching. Her chest pain has been progressively worsening and she was sent to the ER from cardiology office. Patient saw Dr. De Jesus for initial visit on 03/09/2025, and Cardiology was concerned about her accelerating
symptoms with EKG changes in the inferior and anterolateral leads, and he recommended that she go to the ER at that time. EKG showed inferior anterolateral T wave inversions with ST depressions. Troponin was negative x 2 and then 0.017 on the
third blood draw. Cardiology was consulted and patient was recommended for left heart catheterization. Patient was given 200 mg hydrocortisone, 50 mg Benadryl (due to contrast allergy with impending CTA chest) and nitroglycerin drip started in the
ER. Initial CTA chest showed pulmonary mosaic attenuation with a right upper lobe 5 mm lung nodule and a left upper lobe 3.5 mm nodule. Left heart catheterization on 03/09/2025 showed triple-vessel CAD with likely culprit ostial LCx stenosis with
mildly elevated LV filling pressures with no aortic stenosis. CT surgery consult recommended. Patient agreed to this procedure and today she underwent CABG x 3 with left atrial appendage ligation with atrial clip device. Patient tolerated the
procedure well and was transferred to the CVICU postoperatively with electronics test engineer service consulted for additional management/recommendations.
When I saw the patient she was currently on a CPAP trial on 08/31 at 40% FiO2, with PIP 12 cmH2O, breathing at 20 breaths/min and VTe 410 cc. Current heart rate 76, BP via A-line (right radial) 98/54, PAP 25/15, CVP: 10, CO/CI: 3.22/1.56,
respectively, and SpO2: 96%. Currently on Levophed at 1 mcg/min.
PMHx: GERD, hypertension, liver disease, Schatzki's ring s/p dilatation, hyperlipidemia, history of torn right medial meniscus s/p arthroscopy, lumbar fusion (2019), impaired swallowing since neck surgeries in the past, diverticulosis, history of
kidney stones, DM type II
PSHx: Right partial knee replacement (2006+ 2012), right carpal tunnel release and trigger finger release ( 9), removal of bone spur of right shoulder (2003), right ulnar nerve release and transposition (2006+2009), bilateral foot surgery, left
ulnar nerve release and carpal tunnel release, left rotator cuff repair, right knee arthroscopy, C4-5 anterior fusion (2005), right rotator cuff repair, L3-5 fusion, L2-S1 fusion (06/2022)
Past Medical History
Past Medical History: Other (Above as per HPI)
Past Surgical History: Other (Above as per HPI)
Social History
Tobacco: Non-smoker
Alcohol: Occasional
Drug: None
Family History
Family History: CAD (Mother + sibling), Cancer (Bladder, colon and esophageal cancer (father); Sister: Oral cancer), Diabetes (Mother) and Other (Sibling: A-fib)
Allergies / Home Medications
Allergies
Allergy/AdvReac Type Severity Reaction Status Date / Time
alcohol (From Mastisol Allergy Rash Verified 03/09/25 16:44
Adhesive)
gum mastic (From Mastisol Allergy Rash Verified 03/09/25 16:44
Adhesive)
iodine Allergy Rash Verified 03/09/25 16:44
methyl salicylate (From Allergy Rash Verified 03/09/25 16:44
Mastisol Adhesive)
storax (From Mastisol Allergy Rash Verified 03/09/25 16:44
Adhesive)
cold Allergy Unknown Uncoded 10/29/18 13:15
seafood Allergy Nausea / Uncoded 10/29/18 13:15
Vomiting
Home Medications
�Medication �Instructions �Recorded �Confirmed �Last Taken �Type
cholecalciferol (vitamin D3) 50 2,000 unit PO QPM Supplement 10/29/18 03/09/25 03/08/25 History
mcg (2,000 unit) capsule (Vitamin
D3)
esomeprazole magnesium 40 mg 40 mg PO QPM Gastrointestinal Issue 10/29/18 03/09/25 03/08/25 History
capsule,delayed release (Nexium)
Lactobac no.2-Bifidobac no.1-S. 1 cap PO DAILY Supplement 03/09/25 03/09/25 03/09/25 History
thermo 112.5 billion cell capsule
(Visbiome)
amlodipine 5 mg tablet (Norvasc) 5 mg PO QPM Blood Pressure 03/09/25 03/09/25 03/08/25 History
aspirin 81 mg tablet,delayed 81 mg PO QPM Blood Clot 03/09/25 03/09/25 03/08/25 History
release Prevention/Tx
atorvastatin 20 mg tablet (Lipitor) 20 mg PO QPM High Cholesterol 03/09/25 03/09/25 03/08/25 History
biotin 2,500 mcg chewable tablet 2,500 mcg PO DAILY Supplement 03/09/25 03/09/25 03/09/25 History
cetirizine 10 mg tablet (Zyrtec) 10 mg PO DAILY Allergies 03/09/25 03/09/25 03/09/25 History
insulin degludec 100 unit/mL (3 25 unit SC BID Diabetes 03/09/25 03/09/25 03/09/25 History
mL) subcutaneous pen (Tresiba
FlexTouch U-100 insulin)
inulin 2 gram chewable tablet 5 g PO DAILY Supplement 03/09/25 03/09/25 03/09/25 History
losartan 100 1 tab PO DAILY Blood Pressure 03/09/25 03/09/25 03/09/25 History
mg-hydrochlorothiazide 12.5 mg
tablet
magnesium glycinate 120 mg (as 400 mg PO DAILY Supplement 03/09/25 03/09/25 03/09/25 History
glycinate) capsule
metformin 500 mg tablet 1,000 mg PO DAILY Diabetes 03/09/25 03/09/25 03/09/25 History
metformin 500 mg tablet 1,500 mg PO QPM Diabetes 03/09/25 03/09/25 03/08/25 History
semaglutide 1 mg/dose (4 mg/3 mL) 1 mg SC TU Diabetes 03/09/25 03/09/25 03/02/25 History
subcutaneous pen injector (Ozempic)
turmeric 400 mg capsule 400 mg PO BID Supplement 03/09/25 03/09/25 03/09/25 History
Review of Systems
-
Unable to Obtain full review of systems at this time due to: Patient Intubation
Vitals / Labs / Diagnostic Testing
Vital Signs
Temp Pulse Resp BP Pulse Ox
97.9 F 75 16 170/85 95
03/11/25 04:53 03/11/25 05:08 03/11/25 04:53 03/11/25 05:08 03/11/25 04:53
Laboratory Results
03/10/25 03/10/25 03/11/25
12:33 19:40 02:20
APTT 24.8 43.7 H 72.2 H
03/11/25
09:00
APTT Cancelled
Diagnostic Testing:
Physical Exam
-
HEENT: Normocephalic, Anicteric and Other (ETT in place)
Cardiovascular: S1/S2 and Peripheral Edema (negative)
Respiratory: Wheeze (negative), Rhonchi (negative), Non-Labored Respirations, Other (Mechanical breath sounds heard bilaterally) and Other (Left pleural chest tube + mediastinal chest tubes x 2)
GI: Soft, Non Distended, Non Tender and Normal Bowel Sounds
Neurology: Tremors (negative) and Other (Sedated)
Skin: Warm and Dry
General: Respiratory Distress (negative), Fever (negative) and Chills (negative)
Assessment
-
Assessment: 69-year-old female with a past medical history of DM type II, hypertension, mixed hyperlipidemia, history of C4-5 anterior fusion, history of kidney stones, Schatzki's ring s/p dilation, cold urticaria, and obesity who presented with
midsternal chest pain and increased belching. Her chest pain has been progressively worsening and she was sent to the ER from cardiology office. Patient saw Dr. De Jesus for initial visit on 03/09/2025, and Cardiology was concerned about her
accelerating symptoms with EKG changes in the inferior and anterolateral leads, and he recommended that she go to the ER at that time. EKG showed inferior anterolateral T wave inversions with ST depressions. Troponin was negative x 2 and then
0.017 on the third blood draw. Cardiology was consulted and patient was recommended for left heart catheterization. Patient was given 200 mg hydrocortisone, 50 mg Benadryl (due to contrast allergy with impending CTA chest) and nitroglycerin drip
started in the ER. Initial CTA chest showed pulmonary mosaic attenuation with a right upper lobe 5 mm lung nodule and a left upper lobe 3.5 mm nodule. Left heart catheterization on 03/09/2025 showed triple-vessel CAD with likely culprit ostial LCx
stenosis with mildly elevated LV filling pressures with no aortic stenosis. CT surgery consult recommended. Patient agreed to this procedure and today she underwent CABG x 3 with left atrial appendage ligation with atrial clip device. Patient
tolerated the procedure well and was transferred to the CVICU postoperatively with electronics test engineer service consulted for additional management/recommendations.
Chronic conditions [employer]: GERD, hypertension, liver disease, Schatzki's ring s/p dilatation, hyperlipidemia, history of torn right medial meniscus s/p arthroscopy, lumbar fusion (2019), impaired swallowing since neck surgeries in the past,
diverticulosis, history of kidney stones, DM type II
Impression:
#Multivessel CAD s/p CABG x 3 (in situ ARGUELLO to LAD, Ao to RSVG to OM1, Ao to RSVG to RPLB) and left atrial appendage ligation with atrial clip � POD #0
#Anemia
#Multiple lung nodules with 5 mm in right upper lobe and 3.5 mm in left upper lobe
#DM type II c/b hyperglycemia (mild)
#Hypertension
#Hyperlipidemia
#Schatzki's ring
#GERD
Plan:
Ventilator settings reviewed
FiO2 will be weaned to maintain SpO2 >90-94%
Minute ventilation will be adjusted
Arterial blood gases will be monitored
Spontaneous breathing trial will be attempted with hopeful extubation after anesthesia/sedation wear off
prn nebulized bronchodilators - not currently bronchospastic
Pulmonary artery catheter parameters will be followed
Pressors/antihypertensive/inotropes/diuretics will be provided as needed
Maintain MAP>65
Replete electrolytes with K>4, Mg>2
Monitor chest tube output
Monitor hemoglobin
Monitor platelet count and coags
Transfuse blood products as needed to maintain Hb>7g/dL, plt>50k (given post-operative status)
CT surgery managing chest tubes (left pleural x1 + mediastinal chest tubes x 2)
Monitor blood sugar to maintain euglycemia with goal BG 110-140
Insulin drip per protocol
Aspiration precautions
VAP prevention protocol
DVT prophylaxis
Early nutrition
Early mobilization
Of note, I will arrange for outpatient pulmonary office follow-up regarding her lung nodules.
Critical care statement: A total of 38 minutes of critical care time was provided for this patient today. This includes management of ventilator, spontaneous breathing trial, arterial blood gases, pressors, of unstable vital signs, evaluation of the
patient at bedside, reviewing the patient's pertinent medical records including radiographs, microbiology, laboratory evaluations, and discussion with primary team and critical care nursing.
[2025-03-11] MEDS: NOVOLOG FLEXPEN SC ×2 (12:24→15:53)
[2025-03-11] MEDS: ZYRTEC PO (12:24)
[2025-03-11] MEDS: NEURONTIN PO ×2 (12:24→15:53)
--- NOTE | 2025-03-11 12:34 | W.PN.CT.SURG ---
CT Surgery Operative Note
-
CARDIAC SURGERY OPERATIVE REPORT
Preoperative Diagnosis: Multivessel Coronary Artery Disease with unstable angina with associated EKG changes
Postoperative Diagnosis: Same
Procedure(s) Performed:
1. Standard Sternotomy with Aortic and Right Atrial Cannulation
2. Internal Mammary Artery Harvesting, Left
3. Coronary artery bypass grafting x 3 (In situ ARGUELOL to LAD, Ao to RSVG to OM1, Ao to RSVG to RPLB)
4. Endoscopic vein harvesting of right saphenous vein
5. Left atrial appendage ligation with atriclip device
6. Placement of Temporary Ventricular Pacing Wires
Date of Surgery: 03/11/2025
Comorbidities:
1. Hypertension
2. Hyperlipidemia
3. DM type II
4. Schatzki's ring
5. GERD
6. Liver disease
Attending Surgeon: Staci Steve MD, MPH
Assistants: Gigi Flores PA-C (present and necessary to first line supervisor, endoscopic vein harvest, retraction, suction, exposure, suture management, and wound closure under my direction)
Anesthesiology: Rajat Hawkins MD and Briana Landers CRNA
Scrub and Circulating RNs: Julienne Newsome RN, Anayeli Merino, TUYET
Blow Machine Tender Starch Spraying: Raul Diaz CCP
Anesthesia: GETA
EBL: per perfusion records
Products: None
CPB Time: 115 minutes
Aortic Cross Clamp Time: 77 minutes
Indication(s) for Procedures: 69-year-old female with history of hypertension, hyperlipidemia and type 2 diabetes presented outpatient for cardiology consult given ongoing symptoms of chest pain, shortness of breath with EKG changes in the lateral
wall suggestive of ongoing ischemia. She was sent to [facility] emergency department for emergent cath. Left heart cath with significant distal disease into an ostial circumflex significant lesion, and additional mid to proximal LAD lesion in addition
to mid to distal RCA lesion. Her preoperative echo was notable for normal function, no regional wall motion abnormalities and no significant valvular disease.
Conduit(s) Quality:
ARGUELLO -excellent conduit with very good flow
RSVG -vein is on the larger side but no significant varicosities no sclerosis
Target(s) Quality:
RPLB -her inferior wall had a significant posterior lateral branch that was large in addition to some smaller RPL branches and PDA. [place] the PDA was too small and would be better served grafting the large RPL branch that would feed the entire
system. The vessel was free of disease and our arteriotomy and could easily pass a 1 mm probe. Had excellent flow after the anastomosis with 50 cc at 80 mmHg giving cardioplegia and flow probe noting 29 cc a minute with a PI of 2.5.
OM1 -this was a decently sized vessel that had bifurcating branches distally, there was an easily accessible area proximal to the branching that we chose to anastomose which was free of disease and would easily pass a 1 mm probe. Flow through this
vessel after anastomosis was 35 cc at a pressure of 80 mmHg or giving cardioplegia, flow probe 43 cc a minute with PI of 1.3.
LAD -large vessel with 1 large diagonal branch that was noted, arteriotomy without disease and excellent lumen. Flow down the anastomosis using flow probe device 28 cc a minute with a PI of 2.8.
Findings: We did not place a MANUELA probe given her history of a Schatzki's ring requiring dilations and some difficulty with swallowing. A Cameron catheter was placed which showed normal hemodynamics including PA pressure and CVP, this was used to
monitor the patient throughout the case and while coming off bypass. She came off bypass with no issues, minimal support and hemodynamics at baseline, normal sinus rhythm without ST changes. The ARGUELLO was harvested in a skeletonized fashion.
Following bypass grafting, test dose cardioplegia was given down each distal and confirmed patency and hemostasis. Each distal was probed both proximally and distally to confirm disease and patency, respectively.
Description of Procedure: The patient was taken to the operating room. Their identity and procedure to be performed were verified and they were positioned supine on the operating table. Induction via general anesthesia with endotracheal intubation
was performed and central venous access and arterial monitoring were inserted. The patient was then prepped and draped from chin to feet in a sterile fashion. A preoperative time-out was performed with all members of the team present. A midline
chest incision was performed along with median sternotomy. Simultaneous endoscopic access of the right lower extremity for saphenous vein harvest was obtained along with administration of an initial 5,000 units of IV heparin. A RulTract sternal
retractor was positioned to expose the left internal mammary bed. The mammary was harvested and found to have good flow. A bulldog clamp was applied to the distal end of the mammary after dividing it. It was wrapped in a papaverine soaked RayTec and
replaced back into the left hemithorax. The RulTract was exchanged for a median sternal retractor. The innominate vein was isolated. Full heparinization was given (a total of [] units). We created a pericardial well. The aortic cannulation site was
chosen where it was soft, pliable, and free of calcium. Cannulation was performed with an arterial cannula in the ascending aorta and a triple-stage venous cannula through the right atrial appendage. The arterial cannula line had an appropriate
bounce and correlating pressures with test dosing. Next, a root vent/antegrade cannula was inserted into the ascending aorta. The ACT was confirmed to be over 400 and retrograde autologous priming was performed before commencing cardiopulmonary
bypass. The pulmonary artery was away from the aorta to facilitate a clamp site. The aortic cross-clamp was placed after decreasing the flow on the bypass and mean arterial pressure. A total of 1.2L initial dose of antegrade [place]
cardioplegia solution was given and planned for re-dosing every 75 minutes as necessary. There was rapid electro-mechanical arrest of the heart at 400 cc of cardioplegia. The left ventricle was observed for distention on echocardiogram and manual
palpation. Cold slush was placed into a sponge and topically on the RV while we systemically cooled to 34 degrees centigrade.
I positioned the heart to expose the distal right coronary at the right posterior lateral branch after having looked at the entire inferior wall for additional targets. A [place] blade was used to expose the coronary and perform the arteriotomy.
Coronary Dash scissors were used to enlarge the incision. The saphenous vein was trimmed and beveled to an appropriate size. The distal anastomosis was performed using 7-0 prolene in an end-to-side fashion. Antegrade cardioplegia was administered
into the graft. Appropriate hemostasis and flow were confirmed. The graft was measured for length to the aorta and cut. A suitable site on the first obtuse marginal was chosen. We dissected and prepared the distal target in a similar fashion. An
end-to-side anastomosis was created with a 7-0 prolene. Antegrade cardioplegia was administered into the graft. Appropriate hemostasis and flow were confirmed. The graft was measured for length to the aorta and cut. A suitable target on the distal
left anterior descending was identified. We dissected and prepared the distal target in a similar fashion. We retrieved the ARGUELLO from the chest and created a pericardial opening while being cognizant of the phrenic nerve to facilitate the course of
the mammary. The distal end of the mammary was prepped and beveled to size. We verified orientation and length of the NESS and found brisk flow. An end-to-side anastomosis was created with a 7-0 prolene. We temporarily released the bulldog clamp on
the mammary to inspect flow. Perfusion to the LAD territory was visualized and hemostasis was confirmed. The bull clamp was replaced on the mammary. The heart was filled and the root was distended with antegrade cardioplegia to make final assessment
of graft length and orientation. We created 2 aortotomies using a #11 blade then a 3.8mm aortic punch. The proximal anastomoses were created in an end-to-side fashion using 6-0 prolene. At the the same time, we re-warmed to 36.5 degrees centigrade.
The bulldog clamp was removed from the mammary. Temporary bipolar ventricular pacing wires were placed on the base of the right ventricle. The patient was placed in a Trendelenburg position and flows on bypass were lowered. The aortic cross clamp
was removed and flows were slowly brought back up. All bypass grafts were inspected and were free from kinking or twisting. Posterior lateral branch did have some significant bleeding from the heel requiring repositioning and stabilizer for repair.
Once this was repaired we rechecked our flow probe which verified no change in flow through the vessel. After verifying acceptable parameters, we initiated weaning from cardiopulmonary bypass. Once we were off cardiopulmonary bypass, the venous
cannula was clamped and removed. Antegrade cardioplegia cannula was also removed and repaired. A test dose of protamine was administered and the patient was monitored for any adverse reaction before resuming protamine. Once half of the protamine
dose was delivered, pump suckers were turned off and the systolic blood pressure was lowered for aortic decannulation. The aortic cannula was removed and pursestrings were tied down. All cannulation sites were oversewn with a 4-0 prolene. The
mammary bed was inspected and hemostasis was confirmed. Once the mediastinum was hemostatic, 19Fr Ramiro drain was placed in the left pleural cavity and two 24Fr Ramiro drains were placed within the pericardium. The sternum was approximated with 4 #7
single and 3 #8 double stainless steel wires. Fascia was approximated with #1 vicryl suture. The subcutaneous, dermis and epidermis were closed in layers in a running fashion. The skin wound was cleansed and dressed.
All instrument, sponge, and needle counts were confirmed to be correct x 2 at the end of the operation. The patient was transferred to the cardiac intensive care unit in critical but stable condition.
I, Dr. Staci Steve, was present, scrubbed for, and performed all critical elements of this procedure.
Staci Steve MD, MPH
Cardiothoracic Surgeon
[facility]
This operative dictation was created using the [employer] dictation system. Please excuse any grammatical, typographical, or 'sound alike' errors
[2025-03-11 12:56] LABS: Glucose - Point of Care 170 mg/dl (70-99)
[2025-03-11 13:04] LABS: B.E. -2.1 mmol/L; HCO3 23.2 mmol/L (21-28); O2 Saturation % 97.1 % (94-98); PCO2 41 mmHg (32-35); PO2 86 mmHg (83-108); Potassium 4.5 mMOL/L (3.5-5.1); Sodium 138 mMOL/L (136-145)
[2025-03-11 13:19] LABS: Blood Urea Nitrogen 15 mg/dl (7-17); Estimated Creatinine Clearance 87 ml/min; Glucose 155 mg/dl (70-99); Magnesium 2.5 mg/dl (1.6-2.3)
[2025-03-11 13:21] LABS: INR 1.29; PT 16.6 Sec (11.4-14.6)
[2025-03-11 13:22] LABS: APTT 30.7 Sec (23.4-35.0)
[2025-03-11] MEDS: TYLENOL PO (13:23)
[2025-03-11] MEDS: ANCEF 10 IV ×2 (13:23)
[2025-03-11] MEDS: NSS 500 IV (13:23)
[2025-03-11 13:34] LABS: Hematocrit 30.7 % (37.0-47.0); Hemoglobin 10.1 g/dL (12.0-16.0); Platelet Count 205 10^3/uL (130-400)
--- NOTE | 2025-03-11 13:42 | PTCARENOTE ---
Patient received from CVOR at 1245; Sedated and intubated; SR with 1st AVB and RBBB on monitor; VSS; Distant heart sounds; Epicardial V wire present with temporary pacemaker turned off; +1 DP and radial pulses present; Lungs diminished at bases; ETT
size 8 positioned and secured at 23 cm right lip; Ventilator settings SIMV 14/550/5/5 FiO2 40%; CTx3 to -20 cm wall suction draining bloody drainage - no air leak, tidaling, or crepitus noted; Hypoactive BS; Soto catheter in place draining clear,
yellow urine; Sternal incision glued and approximated - GABRIELA, Right groin puncture site glued, approximated, and ecchymotic, right leg wrapped in STEPHANIE wrap - CDI; Right radial A-line in place, [place] Scout present in [facility] Cordis at 47 cm - all lines
zeroed and leveled; PIVx2 - #18 RAC and #20 right forearm; Levo, insulin, and precedex infusing - see nursing flowsheets for further details; see nursing documentation for further details.
CO: 3.58
CI: 1.74
SVR: 1,630
[2025-03-11 14:07] LABS: Glucose - Point of Care 175 mg/dl (70-99)
--- NOTE | 2025-03-11 14:39 | W.PN.UPDATE ---
Update Note
Progress Note Update
69-year-old female electively admitted on 03/11/2025 for CABG due to triple-vessel coronary disease.
IV fluids: 1200
U.O.:� 675
Blood:� none
Wires:� bipolar V-wire
Drips: precedex, Insulin
�
NEURO: sedated, pupils +2mm B/L
RESP: #8OT @24cm> 550/40%/14/5. Lungs clear B/L. 2 mediastinal (0cc on arrival) and L pleural (0cc on arrival) chest tubes to -20cm suction. Sanguineous drainage
CV: RRR +S1, S2, no S3, no�rub, no murmur. Dermabond to median sternotomy. RIJ w/[place] locked @ 47cm. PA 24/16; CVP 10; C.O 3.62/CI 1.76
ABD: round, soft, no BS
EXT: no edema, +2/4 DP pulses B/L, no femoral bruit, RLE STEPHANIE wrap intact; right radial A-line intact
: Soto with clear yellow urine
�
A/P: POD #0 s/p CABG x 3 ARGUELLO-LAD; SVG-OM1, SVG-RPL
MANUELA: not done due to schatzki's ring
- wean and extubate
# CAD
- will require ASA, plavix, statin, beta roxann
�
# acute surgical blood loss anemia-expected
- trend CBC
# Class I obesity (BMI 34)�
- carb calorie controlled diet
# GERD/Schatzki ring
- evaluate swallow function
continue PPI
�
# T2DM (A1C 6.6)
- insulin infusion x 48h
- diabetes RECORDING CLERK consulted
�
--- NOTE | 2025-03-11 14:57 | PTCARENOTE ---
RT in room and patient placed on CPAP breathing trial; ABG due at 1523
[2025-03-11 15:01] LABS: Glucose - Point of Care 163 mg/dl (70-99)
[2025-03-11] MEDS: LR 250 ML IV (15:30)
[2025-03-11 15:36] LABS: B.E. - POC -3.4 mmol/L; Blood Urea Nitrogen - POC 15 mg/dl (3-120); Chloride - POC 111 mmol/L (96-111); Creatinine - POC 0.75 mg/dl (0.3-1.0); Glucose - POC 145 mg/dl (70-99); HCO3 - POC 23 mmol/L (21-28); Hematocrit - POC 30 % PCV (37-47); Hemodilution- POC No; Hemoglobin Calculated - POC 10.1; Ionized Calcium - POC 1.29 mmol/L (1.15-1.33); Lactate - POC 2.12 mmol/L (0.36-0.75); O2 Saturation %Calculated-POC 95.7 % (94-98); PCO2 - POC 43 mmHg (35-48); PO2 - POC 86 mmHg (83-108); Potassium - POC 4.0 mmol/L (3.5-5.1); Sodium - POC 143 mmol/L (136-145); Specimen Type - POC Arterial; pH - POC 7.33 (7.35-7.45)
[2025-03-11] MEDS: SODIUM BICARBONATE 25 MEQ IV (15:41)
[2025-03-11] MEDS: PACERONE PO (15:53)
[2025-03-11 16:02] LABS: Glucose - Point of Care 121 mg/dl (70-99)
[2025-03-11] MEDS: OFIRMEV 100 IV (16:24)
[2025-03-11 16:37] LABS: B.E. - POC -1.1 mmol/L; Blood Urea Nitrogen - POC 15 mg/dl (3-120); Chloride - POC 110 mmol/L (96-111); Creatinine - POC 0.80 mg/dl (0.3-1.0); Glucose - POC 139 mg/dl (70-99); HCO3 - POC 24 mmol/L (21-28); Hematocrit - POC 28 % PCV (37-47); Hemodilution- POC No; Hemoglobin Calculated - POC 9.5; Ionized Calcium - POC 1.24 mmol/L (1.15-1.33); Lactate - POC 1.73 mmol/L (0.36-0.75); O2 Saturation %Calculated-POC 95.6 % (94-98); PCO2 - POC 43 mmHg (35-48); PO2 - POC 82 mmHg (83-108); Potassium - POC 4.2 mmol/L (3.5-5.1); Sodium - POC 141 mmol/L (136-145); Specimen Type - POC Arterial; pH - POC 7.36 (7.35-7.45)
--- NOTE | 2025-03-11 16:45 | PTCARENOTE ---
EPOC ABG reviewed with MANUEL Rowland - 1/2 amp Bicarb given, LR bolus given, and more time give for CPAP trial; EPOC ABG repeated an hour after; RT at bedside; Patient extubated at 1640 and placed on 6L NC
[2025-03-11 16:59] LABS: Glucose - Point of Care 125 mg/dl (70-99)
[2025-03-11] MEDS: LOW STRENGTH ASPIRIN 81 MG PO (17:12)
[2025-03-11] MEDS: LIPITOR PO (17:12)
[2025-03-11 17:16] LABS: Hematocrit 30.3 % (37.0-47.0); Hemoglobin 10.1 g/dL (12.0-16.0); Platelet Count 239 10^3/uL (130-400)
[2025-03-11 18:10] LABS: Glucose - Point of Care 112 mg/dl (70-99)
[2025-03-11] MEDS: SENOKOT 8.6 MG PO (20:03)
[2025-03-11] MEDS: ANCEF 5 IV (20:03)
[2025-03-11 20:16] LABS: Glucose - Point of Care 128 mg/dl (70-99)
--- NOTE | 2025-03-11 20:47 | PTCARENOTE ---
Assumed care of patient at 1900, report recieved from prior RN. ; SR with 1st AV Block on monitor;CI: 2.83 VSS; Distant heart sounds; Epicardial V wire present with temporary pacemaker turned off; +pulses present; Lungs diminished at bases; On 4 L
NC, IS use 500, ; CTx3 to -20 cm wall suction draining bloody drainage - no air leak, tidaling, or crepitus noted; Bowel Sounds Hypoactive, abdomen soft non tender, rounded, Soto catheter in place draining clear, yellow urine 30cc/hr, LR bolus 250
given, ; Sternal incision glued and approximated, [employer], Right groin puncture site glued, approximated, and ecchymotic, right leg site, has STEPHANIE wrap in place -all CDI; Right radial A-line in place, [place] Scout present in RIJ Cordis at 47 cm - all lines
zeroed and leveled; PIVx2 - #18 Right AC and #20 Right forearm, insulin gtt per protocol, see nursing flowsheets for further assessment data.
[2025-03-11] MEDS: NEURONTIN 100 MG PO (21:52)
[2025-03-11] MEDS: FLEXERIL 5 MG PO (21:52)
[2025-03-11] MEDS: PACERONE 200 MG PO (21:52)
[2025-03-11] MEDS: MELATONIN 3 MG PO (21:53)
[2025-03-11] MEDS: TYLENOL 975 MG PO (21:54)
[2025-03-11] MEDS: ROXICODONE 5 MG PO (21:56)
[2025-03-11 22:21] LABS: Glucose - Point of Care 112 mg/dl (70-99)
[2025-03-11 22:45] LABS: B.E. -1.5 mmol/L; HCO3 23.7 mmol/L (21-28); O2 Saturation % 97.3 % (94-98); PCO2 41 mmHg (32-35); PO2 94 mmHg (83-108); Potassium 4.1 mMOL/L (3.5-5.1)
--- NOTE | 2025-03-11 23:00 | PTCARENOTE ---
patient bathed and night medications given, VSS, on 4 L NC, 98.6,
[2025-03-11 23:06] LABS: Glucose - Point of Care 119 mg/dl (70-99)
[2025-03-12] VITALS (22 sets, daily range): BP systolic 99–142; BP diastolic 52–70; PULSE 70; O2SAT 61–91; BMI 35.0
[2025-03-12 00:15] LABS: Glucose - Point of Care 106 mg/dl (70-99)
--- NOTE | 2025-03-12 00:26 | W.PN.CT ---
Today's Communication / Plan
-
-pod #1
-no issues overnight
-CI 2.17, CO 4.46, SVR 1237. Drips: Insulin
-CT outputs: 2 meds 45/65, L pleur 135/235 in 12/24 hrs
-got total 1000 LR
-delined
-continue insulin
-wean off O2 as tolerated
-current meds (ASA, Plavix, Lipitor, Amio, Lopressor, Protonix)
-encourage IS, OOB
Assessment / Plan
-
- mv-CAD - s/p CABG x 3 (ARGUELLO-LAD; SVG-OM1, SVG-RPL) on 03/11/[address] Steve, pod #1
- MANUELA: not done due to Schatzki ring
- HTN
- HLD
- DM II ((A1C 6.6)
- Class I obesity (BMI 34)�
- GERD/Schatzki ring with dilatation
- Liver dz
- Herniated cervical discs C4-C7, s/p fusions in 1989
- Impaired swallowing since neck surgeries
- Diverticulosis
- Acute postop blood loss anemia - no transfusion
- Acute postop hypovolemia with subsequent hypervolemia
- Acute postop atelectasis
- Acute postop suspected pericarditis/+rub
Discussed patient care with: Nursing and Care Team
Subjective
-
Date of Service: March 12, 2025
Objective Data
-
PT 16.6 Sec (11.4-14.6) H 03/11/25 12:47
INR 1.29 03/11/25 12:47
APTT 30.7 Sec (23.4-35.0) 03/11/25 12:47
Vital Signs
Vital Signs
Temp Pulse Resp BP Pulse Ox
98.6 F 79 15 100/56 94
03/12/25 00:00 03/12/25 00:15 03/12/25 00:15 03/12/25 00:00 03/12/25 00:15
CT Intake/Output/Weight
03/11/25 03/11/25 03/12/25
06:59 18:59 06:59
Intake Total 55 / 55 865.8 / 1944.7 1078.9 / 1944.7
Output Total 1575 / 1575 540 / 785 245 / 785
Balance -1520 / -1520 325.8 / 1159.7 833.9 / 1159.7
SaO2: 94
Physical Exam
-
General: Awake and AOx3
Cardiovascular: Regular rate & rhythm, No Murmurs and Rub
Respiratory: Decreased Breath Sounds
Sternum: Stable
Incision: Clean, Dry and Intact
Extremities: No Edema (2+DPs b/l)
Abdomen: soft, nontender, nondistended, +decreased bowel sounds
Data Reviewed
-
Lab Results: Results Reviewed
Medications: Active Meds Reviewed
Chest X-Ray: Report Reviewed and Image Reviewed
ECG: Report Reviewed and Image Reviewed
[2025-03-12 01:05] LABS: Glucose - Point of Care 88 mg/dl (70-99)
[2025-03-12 02:03] LABS: Glucose - Point of Care 109 mg/dl (70-99)
[2025-03-12] MEDS: ROXICODONE 5 MG PO ×2 (03:03→19:24)
[2025-03-12 03:12] LABS: Glucose - Point of Care 105 mg/dl (70-99)
[2025-03-12 04:01] LABS: Hematocrit 28.8 % (37.0-47.0); Hemoglobin 9.3 g/dL (12.0-16.0); Mean Corp Hgb Conc. 32.3 g/dL (33.0-37.0); Mean Corpuscular Volume 90.3 fL (81.0-99.0); Platelet Count 216 10^3/uL (130-400); Red Cell Dist. Width 13.9 % (11.5-14.5)
[2025-03-12] MEDS: ANCEF 5 IV ×2 (04:12→13:17)
[2025-03-12 04:23] LABS: Blood Urea Nitrogen 20 mg/dl (7-17); Calcium 8.6 mg/dl (8.4-10.2); Carbon Dioxide 27 mmol/L (22-30); Chloride 109 mmol/L (98-107); Estimated Creatinine Clearance 76 ml/min; Glucose 99 mg/dl (70-99); Magnesium 2.3 mg/dl (1.6-2.3); Potassium 4.1 mmol/L (3.5-5.1); Sodium 139 mmol/L (135-145); eGFR > 60.00
[2025-03-12 05:14] LABS: Glucose - Point of Care 96 mg/dl (70-99)
--- NOTE | 2025-03-12 06:00 | PTCARENOTE ---
Patient OOB to chair, [place] and Art line discontinued, sites dressed appropriately . On 3L NC 96%, NSR with 1St degree on monitor, VSS.
[2025-03-12] MEDS: TYLENOL 975 MG PO ×3 (06:18→22:00)
--- NOTE | 2025-03-12 07:10 | W.PN.ANS.POP ---
Anesthesia Post Operative
- Anesthesia Post Op Note
Vital Signs Stable-See Nursing Note: Yes
Airway Patent: Yes
Adequate Pain Control: Yes
Change in Mental Status: No
Current Postoperative Nausea & Vomiting: No
Anesthesia Complications: No
General Anesthetic Recall: No
Unplanned Admission: No
Post Op Hydration Adequate: Yes
[2025-03-12 07:11] LABS: Glucose - Point of Care 119 mg/dl (70-99)
--- NOTE | 2025-03-12 08:25 | W.PN.INTV ---
Today's Communication / Plan
Recommendations
Postoperative management as per CT surgery
Pain control
Removal of chest tubes per CT surgery
Goal BG 110�140
Encourage incentive spirometer
Goal MAP >65
Lift Driver service will continue to follow along while patient remains in the CVICU; once weaned off insulin drip and transferred to CVICU�telemetry status, then we will sign off at that time
Assessment
-
Assessment: 69-year-old female with a past medical history of DM type II, hypertension, mixed hyperlipidemia, history of C4-5 anterior fusion, history of kidney stones, Schatzki's ring s/p dilation, cold urticaria, and obesity who presented with
midsternal chest pain and increased belching. Her chest pain has been progressively worsening and she was sent to the ER from cardiology office. Patient saw Dr. De Jesus for initial visit on 03/09/2025, and Cardiology was concerned about her
accelerating symptoms with EKG changes in the inferior and anterolateral leads, and he recommended that she go to the ER at that time. EKG showed inferior anterolateral T wave inversions with ST depressions. Troponin was negative x 2 and then
0.017 on the third blood draw. Cardiology was consulted and patient was recommended for left heart catheterization. Patient was given 200 mg hydrocortisone, 50 mg Benadryl (due to contrast allergy with impending CTA chest) and nitroglycerin drip
started in the ER. Initial CTA chest showed pulmonary mosaic attenuation with a right upper lobe 5 mm lung nodule and a left upper lobe 3.5 mm nodule. Left heart catheterization on 03/09/2025 showed triple-vessel CAD with likely culprit ostial LCx
stenosis with mildly elevated LV filling pressures with no aortic stenosis. CT surgery consult recommended. Patient agreed to this procedure and today she underwent CABG x 3 with left atrial appendage ligation with atrial clip device. Patient
tolerated the procedure well and was transferred to the CVICU postoperatively with baggage handler service consulted for additional management/recommendations.
Chronic conditions SOCIOLOGY TEACHER: GERD, hypertension, liver disease, Schatzki's ring s/p dilatation, hyperlipidemia, history of torn right medial meniscus s/p arthroscopy, lumbar fusion (2020), impaired swallowing since neck surgeries in the past,
diverticulosis, history of kidney stones, DM type II
Impression:
#Multivessel CAD s/p CABG x 3 (in situ ARGUELLO to LAD, Ao to RSVG to OM1, Ao to RSVG to RPLB) and left atrial appendage ligation with atrial clip � POD #1
#Anemia
#Multiple lung nodules with 5 mm in right upper lobe and 3.5 mm in left upper lobe
#DM type II c/b hyperglycemia (mild)
#Hypertension
#Hyperlipidemia
#Schatzki's ring
#GERD
Plan:
Patient was successfully extubated on 03/11/2025, and is now on room air breathing comfortably, saturating 90%
Maintain SpO2 >90-94%
prn nebulized bronchodilators - not currently bronchospastic
Encourage incentive q1hr while awake
Pulmonary artery catheter parameters will be followed
Pressors/antihypertensive/inotropes/diuretics will be provided as needed
Maintain MAP>65
Replete electrolytes with K>4, Mg>2
Monitor chest tube output
Monitor hemoglobin
Monitor platelet count and coags
Transfuse blood products as needed to maintain Hb>7g/dL, plt>50k (given post-operative status)
CT surgery managing chest tubes (mediastinal chest tubes x 2; left pleural chest tube to be removed today)
Monitor blood sugar to maintain euglycemia with goal BG 110-140
Insulin drip per protocol
Aspiration precautions
DVT prophylaxis
Early nutrition
Early mobilization
Of note, I will arrange for outpatient pulmonary office follow-up regarding her lung nodules.
Critical care statement: A total of 41 minutes of critical care time was provided for this patient today. This includes management of ventilator, spontaneous breathing trial, arterial blood gases, pressors, of unstable vital signs, evaluation of the
patient at bedside, reviewing the patient's pertinent medical records including radiographs, microbiology, laboratory evaluations, and discussion with primary team and critical care nursing.
Subjective Dataa
Subjective Data
Date of Service:
Date of Service: March 12, 2025
Chief Complaint: Lift Driver Follow Up
Subjective:
Patient seen and evaluated today at bedside. Patient's , Jake, present at bedside. Patient currently on room air saturating 90%, heart rate 74 and BP via NIBP: 124/64. Currently on insulin drip at 4 units/hr.
Review of Systems
General: Other (Negative unless mentioned above)
Objective Data
Data Reviewed
Vital Signs / I&O / Oxygen:
Vital Signs
Temp Pulse Resp BP Pulse Ox
98.8 F 82 19 135/61 90
03/12/25 16:15 03/12/25 17:00 03/12/25 10:40 03/12/25 16:00 03/12/25 17:00
Intake and Output
03/11/25 03/12/25 03/13/25
06:59 06:59 06:59
Intake Total 55 / 55 2246.8 / 2317.9 863.6 / 863.6
Output Total 1575 / 1575 1090 / 1145 620 / 620
Balance -1520 / -1520 1156.8 / 1172.9 243.6 / 243.6
SaO2 [CPAP/PSV] 95
SaO2 [SIMV] 92
SaO2 90
Nasal Cannula flow liters per 1
minute
Physical Exam
General: Respiratory Distress (negative), Comfortable and Sweats (negative)
HEENT: Normocephalic and Anicteric
Cardiovascular: S1-S2, Rub (Positive) and Peripheral Edema (negative)
Respiratory: Wheeze (negative), Rhonchi (negative), Non-Labored Respirations and Chest Tube (Mediastinal chest tubes x 2 + left pleural chest tube x 1)
GI: Soft, Non Distended, Non Tender and Normal Bowel Sounds
Neurology: Awake, Oriented, Tremors (negative) and Other (Sleepy)
Skin: Warm, Dry, Cyanosis (negative) and Jaundice (negative)
Labs/Micro/Reports
Lab Data
03/12/25 03:40
03/12/25 03:40
Laboratory Results
03/11/25
22:36
pH 7.37
pCO2 41 H
pO2 94
HCO3 23.7
O2 Delivery Level
Microbiology
03/11/25 07:00 Urine Urine Culture - Final
NO GROWTH
--- NOTE | 2025-03-12 08:32 | PN.DE.MGMTRT ---
Insulin Management
- -
03/12/2025: Diabetes Management Consult
69 year old female electively admitted on 03/11/2025 for CABG due to triple-vessel coronary disease.
PMH: HTN, HLD, DM II ((A1C 6.6), Diverticulosis, GERD/Schatzki ring with dilatation, Class I obesity (BMI 34)�, Liver dz, Herniated cervical discs C4-C7, s/p fusions in 1989, Impaired swallowing since neck surgeries.
Pt awake, alert, oriented, sitting up in chair, offers no complains, able to discuss diabetes care plan. She is POD # 1 and doing well.
States prior to admission was taking Tresiba 25 units at breakfast and at 8pm, Metformin 1000mg with breakfast and 1500 with dinner and Ozempic 1 mg weekly on Tuesdays. States she has a glucose monitor and tests her sugars once a day. instructed pt
to increase testing schedule to twice a day.
Currently on the Glycemic protocol, glucose range 88 to 119, receiving 0.4 to 3.5 units of insulin/hr
Will make no changes to current plan of management. Will place orders to transition off insulin infusion tomorrow at lunch time.
Give Lantus 25 units 1 hr prior to stopping drip, then 25 units @ HS. Resume home Metformin. Will ask CM to verify coverage for SGLT2.
Discussed with CVAPP team and Nurse. Will cont to follow
-
Diabetes History
- -
Type of Diabetes: 2 requiring insulin
Pre-Admission Diabetes Regimen
03/11/25 03/12/25
12:47 03:40
Creatinine 0.7 0.8
Lab Results
Hemoglobin A1c 6.6 % (4.0-5.9) H 03/09/25 13:08
Insulin Pump Settings
IP Diabetes Regimen
03/11/25 03/11/25 03/11/25
12:47 12:51 14:06
Glucose 155 H
POC Glucose 170 H 175 H
03/11/25 03/11/25 03/11/25
14:59 16:01 16:58
Glucose
POC Glucose 163 H 121 H 125 H
03/11/25 03/11/25 03/11/25
18:06 20:13 22:19
Glucose
POC Glucose 112 H 128 H 112 H
03/11/25 03/12/25 03/12/25
23:05 00:14 01:04
Glucose
POC Glucose 119 H 106 H 88
03/12/25 03/12/25 03/12/25
02:02 03:11 03:40
Glucose 99
POC Glucose 109 H 105 H
03/12/25 03/12/25
05:12 07:09
Glucose
POC Glucose 96 119 H
Meal type: Lunch
Amount consumed: 0
Patient Education
[2025-03-12] MEDS: NOVOLOG FLEXPEN SC (08:38)
[2025-03-12 09:16] LABS: Glucose - Point of Care 175 mg/dl (70-99)
[2025-03-12] MEDS: LOPRESSOR 12.5 MG PO (09:19)
[2025-03-12] MEDS: BACTROBAN 2% OINTMENT 1 APPLIC NASAL ×2 (09:19→19:26)
[2025-03-12] MEDS: MAGNESIUM OXIDE 400 MG PO ×2 (09:20→19:25)
[2025-03-12] MEDS: NEURONTIN 100 MG PO ×3 (09:20→22:00)
[2025-03-12] MEDS: PLAVIX 75 MG PO (09:21)
[2025-03-12] MEDS: LOW STRENGTH ASPIRIN 81 MG PO (09:21)
[2025-03-12] MEDS: ZYRTEC 10 MG PO (09:21)
[2025-03-12] MEDS: PROTONIX 40 MG PO (09:21)
[2025-03-12] MEDS: SENOKOT 8.6 MG PO ×2 (09:22→19:25)
[2025-03-12] MEDS: PACERONE 200 MG PO ×3 (09:22→22:00)
[2025-03-12] MEDS: KCL 20 MEQ PO ×2 (09:43→21:57)
[2025-03-12] MEDS: LASIX 40 MG IV ×2 (09:43→16:16)
[2025-03-12] MEDS: LIDOCAINE 4% PATCH 1 PATCH TOPICAL (09:43)
--- NOTE | 2025-03-12 09:54 | W.PN.CD ---
Today's Communication / Plan
-
-Continue routine post-surgical care as directed by CT Surgery.
-Continue ASA/Plavix, atorvastatin, metoprolol tartrate.
-IV Lasix today.
Impression / Plan
-
Impression/Plan: 69F with HTN, IDDM, HLD, GERD, and orthopedic surgeries admitted from office with accelerating/unstable angina, found to have severe multivessel CAD.
Primary Clinical Research Nurse Coordinator: Dr. De Jesus
#CAD s/p CABG
-Successful CABG 03/11/25.
-Continue routine post-surgical care as directed by CT Surgery.
-Continue ASA/Plavix, atorvastatin, metoprolol tartrate.
-IV Lasix today.
#Hypertension
-Chronic, stable.
-Continue metoprolol tartrate.
#Type 2 diabetes mellitus
-Chronic, stable.
-Insulin per protocol.
-HgbA1c pending.
#HLD
-Chronic.
-Total cholesterol = 149, LDL = 84, HDL = 30, Triglycerides = 175.
-Continue atorvastatin 40 mg.
-Goal LDL < 55.
#GERD
-Chronic, stable.
-Continue PPI.
#Obesity
-Chronic, stable, BMI 33.
-Weight loss recommended.
-There is now an indication for GLP-1 analog.
Subjective/Interval History:
Stable s/p CABG yesterday.
DATA:
Cardiac Catheterization, 03/09/2025:
CORONARY ANGIOGRAPHY
Dominance: right
LM: Large vessel with severe distal LM bifurcation disease (Almaraz 0,1,1) as further described below.
LAD: Large vessel giving rise to a moderate caliber D1 and wrapping around the apex. There is eccentric distal LM vs. ostial LAD disease that is likely mild-moderate in severity. There is a long segment of disease in the proximal LAD up to 80%.
LCx: Large vessel giving rise to a moderate caliber OM1 and moderate caliber OM2. There is a focal 95% stenosis in the ostial LCx with TIMI2 flow distally. There is a smooth 30% stenosis leading into the body of OM2.
RCA: Large vessel giving rise to moderate caliber RPDA, moderate caliber RPL1, moderate caliber RPL2, and small RPL3. There is a long segment of up to 80% disease in the [id number] RCA. The proximal RPDA has a long 40-50% stenosis.
CONCLUSIONS
1. Triple vessel coronary artery disease as defined with likely culprit ostial LCx stenosis.
2. Mildly elevated LV filling pressure and no aortic stenosis.
CT Chest, 03/10/2025:
IMPRESSION:
Fusiform aneurysmal dilatation of the ascending aorta measuring up to 4 cm.
Subtle pulmonary parenchymal mosaic attenuation which is nonspecific, though may be associated with obstructive small airway disease, or other nonspecific pulmonary parenchymal disease.
Right upper lobe 5 mm pulmonary nodule. Left upper lobe 3.5 mm nodule.
2.2 cm right adrenal benign adenoma.
Carotid Artery Duplex, 03/10/2025:
IMPRESSION: Negative for flow-limiting carotid stenosis. By velocity criteria, any internal carotid artery stenosis present is in the range of 0-49%.
TTE, 03/10/2025:
SUMMARY
1. Normal biventricular size and systolic function without regional wall motion abnormality. LVEF 68%.
2. No significant valvular disease.
3. Ascending aorta measures 4.2 cm.
4. No prior study available for comparison.
Physical Exam
Vital Signs/Labs
Vital Signs
Temp Pulse Resp BP Pulse Ox
97.5 F 80 27 123/63 94
03/12/25 08:00 03/12/25 09:19 03/12/25 09:10 03/12/25 09:19 03/12/25 09:10
03/11/25 03/12/25 03/13/25
06:59 06:59 06:59
Actual Weight 96.9 kg 99.8 kg
03/12/25 03:40
03/12/25 03:40
PT 16.6 Sec (11.4-14.6) H 03/11/25 12:47
INR 1.29 03/11/25 12:47
APTT 30.7 Sec (23.4-35.0) 03/11/25 12:47
Magnesium 2.3 mg/dl (1.6-2.3) 03/12/25 03:40
Triglycerides 175 mg/dl (10-149) H 03/10/25 04:28
LDL Cholesterol, Calc 84 mg/dl 03/10/25 04:28
VLDL Cholesterol, Calc 35 mg/dl (0-30) H 03/10/25 04:28
HDL Cholesterol 30 mg/dl 03/10/25 04:28
LAB Results
03/09/25 03/09/25 03/09/25
13:08 17:58 21:05
Troponin I < 0.012 < 0.012 0.017 D
03/09/25
23:27
Troponin I Cancelled
Physical Exam
Constitutional: No acute distress and Comfortable
EENT: Anicteric
Cardiovascular: Rhythm & rate is regular, Pedal edema present (trace), S1S2 is normal and Rub present
Respiratory: Respiratory effort normal and Crackles Present
GI: Soft
Neuro/Psych: AO x 3
Other: Skin (warm, dry, intact)
Data Reviewed
-
Date of Service: March 12, 2025
EKG: Tracing Personally Visualized and interpreted (Telemetry: Sinus rhythm)
Medical Tests (PFT, Pathology etc): Discussed with Physician (CT Surgery team), Discussed with Nurse and Discussed with Patient
Labs: Labs Reviewed by me
Critical Care Time (in minutes): 34
[2025-03-12 11:06] LABS: Glucose - Point of Care 138 mg/dl (70-99)
[2025-03-12 13:00] LABS: Glucose - Point of Care 126 mg/dl (70-99)
[2025-03-12] MEDS: NSS IV (13:22)
[2025-03-12] MEDS: NOVOLOG FLEXPEN 4 UNITS SC ×2 (13:48→17:26)
--- NOTE | 2025-03-12 14:32 | CM ---
Addendum entered by Joselin Morales 03/12/25 16:32:
Telephone call to [employer] [facility] Liaison to check on shower chair. A shower chair is not covered under insurance so they do not supply them.
Original Note:
Reviewed chart. Met with and Mrs. Lieberman to review discharge plans. She states she is feeling okay. She states prior to admission she resides with her spouse in a one story with two steps to enter. She states prior to admission she was
independent with ambulation and adls. She states she has crutches and a single point cane at home. She is asking for a script for a shower chair. She states she has a prescription plan and uses [facility] mail order and [facility] when
needed. Medical work-up in progress. The discharge plan is to return home with her spouse and a home visit by the Transitional Care Nurse when medically stable.
[2025-03-12 15:24] LABS: Glucose - Point of Care 152 mg/dl (70-99)
--- NOTE | 2025-03-12 15:50 | PTCARENOTE ---
Handoff with valeria RN at 1130. Ox3, drowsy with somewhat slow speech. NSR on tele. Pacer wires insulated this AM, A line out. +[address] removed, x2 meds intact. Breaths are shallow, with diminished breath sounds throughout.
Currently on 1L NC with 94% sat. Encouraged use of IS and stressed its importance along with early mobility, pt agreeable. Charles removed this AM, pt due to void. Pt tolerated clear liquid breakfast, now moved onto solids for lunch. Insulin gtt
infusing per critical care glycemic protocol through [facility]. Pt and family educated. Call jensen within reach, pt makes needs known.
[2025-03-12 16:13] LABS: Glucose - Point of Care 122 mg/dl (70-99)
[2025-03-12 17:23] LABS: Glucose - Point of Care 112 mg/dl (70-99)
[2025-03-12] MEDS: LIPITOR 40 MG PO (17:27)
[2025-03-12] MEDS: VITAMIN D3 (cholecalciferol) 50 MCG PO (17:27)
[2025-03-12 18:13] LABS: Glucose - Point of Care 133 mg/dl (70-99)
[2025-03-12 19:19] LABS: Glucose - Point of Care 206 mg/dl (70-99)
[2025-03-12] MEDS: FLEXERIL 5 MG PO (19:25)
[2025-03-12] MEDS: LOPRESSOR 25 MG PO (19:25)
[2025-03-12] MEDS: REMOVE LIDOCAINE PATCH 1 PATCH REMOVE (20:00)
--- NOTE | 2025-03-12 20:00 | PTCARENOTE ---
assumed care of patient at 1900, Patietn alert and orient ed X 3, follows commands. tolerated being out of bed today. Bacjk anbjjjj Sternal site glue and CDI. NSR on monitor, pulses present. on 2L nc.
[2025-03-12 21:17] LABS: Glucose - Point of Care 104 mg/dl (70-99)
[2025-03-12 21:35] LABS: Blood Urea Nitrogen 26 mg/dl (7-17); Calcium 8.5 mg/dl (8.4-10.2); Carbon Dioxide 29 mmol/L (22-30); Chloride 105 mmol/L (98-107); Estimated Creatinine Clearance 69 ml/min; Glucose 97 mg/dl (70-99); Magnesium 2.3 mg/dl (1.6-2.3); Potassium 3.8 mmol/L (3.5-5.1); Sodium 134 mmol/L (135-145); eGFR > 60.00
[2025-03-12] MEDS: MUCINEX 600 MG PO (21:56)
[2025-03-12] MEDS: MELATONIN 3 MG PO (22:00)
[2025-03-12 23:24] LABS: Glucose - Point of Care 125 mg/dl (70-99)
[2025-03-13] VITALS (43 sets, daily range): BP systolic 94–127; BP diastolic 49–89; PULSE 82; O2SAT 96–99; BMI 35.2
[2025-03-13 02:27] LABS: Glucose - Point of Care 96 mg/dl (70-99)
[2025-03-13] MEDS: NOVOLIN R INSULIN INFUSION 100 IV (03:13)
[2025-03-13 03:48] LABS: Hematocrit 28.8 % (37.0-47.0); Hemoglobin 9.1 g/dL (12.0-16.0); Mean Corp Hgb Conc. 31.6 g/dL (33.0-37.0); Mean Corpuscular Volume 90.3 fL (81.0-99.0); Platelet Count 231 10^3/uL (130-400); Red Cell Dist. Width 14.4 % (11.5-14.5)
[2025-03-13 04:02] LABS: Blood Urea Nitrogen 29 mg/dl (7-17); Calcium 8.4 mg/dl (8.4-10.2); Carbon Dioxide 28 mmol/L (22-30); Chloride 107 mmol/L (98-107); Estimated Creatinine Clearance 69 ml/min; Glucose 102 mg/dl (70-99); Magnesium 2.3 mg/dl (1.6-2.3); Potassium 4.1 mmol/L (3.5-5.1); Sodium 139 mmol/L (135-145); eGFR > 60.00
--- NOTE | 2025-03-13 04:19 | PTCARENOTE ---
patietn OOB to void, clear yellow consintrated, Voids in bathroom without issue.patietn weight and returned to bed, Labs sent
--- NOTE | 2025-03-13 05:40 | W.PN.CT ---
Today's Communication / Plan
-
-pod #2
-no issues overnight
-CT outputs: 2 meds 45/190 in 12/24 hrs
-drips: insulin
-transition to Lantus and Metformin. Appreciate DM input
-diuresed with 40 iv Lasix bid. UO 600/1020 in 12/24 hrs - continue
-wean off O2 as tolerated
-current meds (ASA, Plavix, Lipitor, Amio, Lopressor 25 bid, Mucinex, Protonix)
-encourage IS, OOB
Assessment / Plan
-
- mv-CAD - s/p CABG x 3 (ARGUELLO-LAD; SVG-OM1, SVG-RPL) on 03/11/[address] Steve, pod #2
- MANUELA: not done due to Schatzki ring
- HTN
- HLD
- DM II ((A1C 6.6)
- Class I obesity (BMI 34)�
- GERD/Schatzki ring with dilatation
- Liver dz
- Herniated cervical discs C4-C7, s/p fusions in 1989
- Impaired swallowing since neck surgeries
- Diverticulosis
- Acute postop blood loss anemia - no transfusion
- Acute postop hypovolemia with subsequent hypervolemia
- Acute postop atelectasis
- Acute postop suspected pericarditis/+rub
Discussed patient care with: Nursing and Care Team
Subjective
-
Date of Service: March 13, 2025
Objective Data
-
Lab Results
03/13/25 03:32
03/13/25 03:32
PT Cancelled 03/12/25 22:05
INR Cancelled 03/12/25 22:05
APTT Cancelled 03/12/25 22:05
Vital Signs
Vital Signs
Temp Pulse Resp BP Pulse Ox
98.8 F 85 19 118/61 69
03/12/25 16:15 03/13/25 04:01 03/12/25 10:40 03/13/25 04:01 03/13/25 04:25
CT Intake/Output/Weight
03/12/25 03/12/25 03/13/25
06:59 18:59 06:59
Intake Total 1381.0 / 2317.9 863.6 / 1110.0 246.4 / 1110.0
Output Total 550 / 1145 620 / 1225 605 / 1225
Balance 831.0 / 1172.9 243.6 / -115.0 -358.6 / -115.0
SaO2: 69
Physical Exam
-
General: Awake and AOx3
Cardiovascular: Regular rate & rhythm, No Murmurs and Rub
Respiratory: Decreased Breath Sounds
Sternum: Stable
Incision: Clean, Dry and Intact
Abdomen: soft, nontender, nondistended, +decreased bowel sounds
Extremities: No Edema (2+DPs b/l)
Data Reviewed
-
Lab Results: Results Reviewed
Medications: Active Meds Reviewed
Chest X-Ray: Report Reviewed and Image Reviewed
ECG: Report Reviewed and Image Reviewed
[2025-03-13] MEDS: TYLENOL 975 MG PO ×3 (06:12→21:57)
[2025-03-13 06:24] LABS: Glucose - Point of Care 102 mg/dl (70-99)
[2025-03-13 07:32] LABS: Glucose - Point of Care 127 mg/dl (70-99)
[2025-03-13] MEDS: NOVOLOG FLEXPEN 4 UNITS SC ×3 (07:34→17:05)
--- NOTE | 2025-03-13 08:16 | W.PN.INTV ---
Today's Communication / Plan
Recommendations
Postoperative management as per CT surgery
Pain control
Removal of chest tubes per CT surgery
Goal BG 110�140
Encourage incentive spirometer
Goal MAP >65
Outpatient pulmonary office follow-up rec'd regarding her lung nodules.
Once patient is weaned off of insulin drip and transferred to CVICU�telemetry status, then street car inspector service will sign off at that time.
Assessment
-
Assessment: 69-year-old female with a past medical history of DM type II, hypertension, mixed hyperlipidemia, history of C4-5 anterior fusion, history of kidney stones, Schatzki's ring s/p dilation, cold urticaria, and obesity who presented with
midsternal chest pain and increased belching. Her chest pain has been progressively worsening and she was sent to the ER from cardiology office. Patient saw Dr. De Jesus for initial visit on 03/09/2025, and Cardiology was concerned about her
accelerating symptoms with EKG changes in the inferior and anterolateral leads, and he recommended that she go to the ER at that time. EKG showed inferior anterolateral T wave inversions with ST depressions. Troponin was negative x 2 and then
0.017 on the third blood draw. Cardiology was consulted and patient was recommended for left heart catheterization. Patient was given 200 mg hydrocortisone, 50 mg Benadryl (due to contrast allergy with impending CTA chest) and nitroglycerin drip
started in the ER. Initial CTA chest showed pulmonary mosaic attenuation with a right upper lobe 5 mm lung nodule and a left upper lobe 3.5 mm nodule. Left heart catheterization on 03/09/2025 showed triple-vessel CAD with likely culprit ostial LCx
stenosis with mildly elevated LV filling pressures with no aortic stenosis. CT surgery consult recommended. Patient agreed to this procedure and today she underwent CABG x 3 with left atrial appendage ligation with atrial clip device. Patient
tolerated the procedure well and was transferred to the CVICU postoperatively with street car inspector service consulted for additional management/recommendations.
Chronic conditions [employer] MECH[employer]IC: GERD, hypertension, liver disease, Schatzki's ring s/p dilatation, hyperlipidemia, history of torn right medial meniscus s/p arthroscopy, lumbar fusion (2020), impaired swallowing since neck surgeries in the past,
diverticulosis, history of kidney stones, DM type II
Impression:
#Multivessel CAD s/p CABG x 3 (in situ ARGUELLO to LAD, Ao to RSVG to OM1, Ao to RSVG to RPLB) and left atrial appendage ligation with atrial clip � POD #2
#Anemia
#Multiple lung nodules with 5 mm in right upper lobe and 3.5 mm in left upper lobe
#DM type II c/b hyperglycemia (mild)
#Hypertension
#Hyperlipidemia
#Schatzki's ring
#GERD
Plan:
Patient was successfully extubated on 03/11/2025, and is now on 4L/min breathing comfortably, saturating 96%; of note, she was on room air yesterday (03/12)
Maintain SpO2 >90-94%, weaning down supplemental O2 flow rate as tolerated
prn nebulized bronchodilators - not currently bronchospastic
Encourage incentive q1hr while awake
Pulmonary artery catheter parameters will be followed
Pressors/antihypertensive/inotropes/diuretics will be provided as needed
Maintain MAP>65
Replete electrolytes with K>4, Mg>2
Monitor chest tube output
Monitor hemoglobin
Monitor platelet count and coags
Transfuse blood products as needed to maintain Hb>7g/dL, plt>50k (given post-operative status)
CT surgery managing chest tubes (mediastinal chest tubes x 2; left pleural chest tube removed on 03/12)
Monitor blood sugar to maintain euglycemia with goal BG 110-140
Insulin drip per protocol - insulin to be stopped later this evening; once off, recommend to use ISS to maintain BG at goal as above
Aspiration precautions
DVT prophylaxis
Early nutrition
Early mobilization
Of note, I will arrange for outpatient pulmonary office follow-up regarding her lung nodules.
Once patient is weaned off of insulin drip and transferred to CVICU�telemetry status, then street car inspector service will sign off at that time. Please call pulmonary service if there are any questions or concerns.
Critical care statement: A total of 38 minutes of critical care time was provided for this patient today. This includes management of ventilator, spontaneous breathing trial, arterial blood gases, pressors, of unstable vital signs, evaluation of the
patient at bedside, reviewing the patient's pertinent medical records including radiographs, microbiology, laboratory evaluations, and discussion with primary team and critical care nursing.
Subjective Dataa
Subjective Data
Date of Service:
Date of Service: March 13, 2025
Chief Complaint: Multicultural Internship Follow Up
Subjective:
Patient seen today at bedside. Heart rate 86, BP 110/85 and saturating 96% on 4 L/min nasal cannula. Patient's friend as well as are both at bedside. All questions were answered. Currently on insulin drip at 0.5 units/hr. Patient has no
complaints currently, denies shortness of breath, chest pain, BARNETT, nausea, fevers or chills.
Review of Systems
General: Other (Negative unless mentioned above)
Objective Data
Data Reviewed
Vital Signs / I&O / Oxygen:
Vital Signs
Temp Pulse Resp BP Pulse Ox
98.0 F 87 18 110/61 94
03/13/25 08:00 03/13/25 09:00 03/13/25 05:00 03/13/25 08:21 03/13/25 09:00
Intake and Output
03/12/25 03/13/25 03/14/25
06:59 06:59 06:59
Intake Total 2246.8 / 2317.9 1110.0 / 1110.0 52 / 529
Output Total 1090 / 1145 1265 / 1265
Balance 1156.8 / 1172.9 -155.0 / -155.0 52 529
SaO2 [CPAP/PSV] 95
SaO2 [SIMV] 92
SaO2 94
Nasal Cannula flow liters per 4
minute
Physical Exam
General: Respiratory Distress (negative), Comfortable, Chills (negative) and Sweats (negative)
HEENT: Normocephalic and Anicteric
Cardiovascular: S1-S2, Regular Rhythm, Rub (Positive) and Peripheral Edema (negative)
Respiratory: Wheeze (negative), Rhonchi (negative), Non-Labored Respirations and Chest Tube (Mediastinal chest tubes x 2)
GI: Soft, Non Distended, Non Tender and Normal Bowel Sounds
Neurology: Awake, Alert, Oriented and Tremors (negative)
Skin: Warm, Dry, Cyanosis (negative) and Jaundice (negative)
Labs/Micro/Reports
Lab Data
03/13/25 03:32
03/13/25 03:32
Laboratory Results
03/12/25 03/12/25
22:04 22:05
PT Cancelled
INR Cancelled
APTT Cancelled
pH Cancelled
pCO2 Cancelled
pO2 Cancelled
HCO3 Cancelled
O2 Delivery Level Cancelled
Microbiology
03/11/25 07:00 Urine Urine Culture - Final
NO GROWTH
[2025-03-13] MEDS: BACTROBAN 2% OINTMENT 1 APPLIC NASAL ×2 (08:26→20:03)
[2025-03-13] MEDS: LOW STRENGTH ASPIRIN 81 MG PO (08:27)
[2025-03-13] MEDS: FARXIGA 10 MG PO (08:27)
[2025-03-13] MEDS: PROTONIX 40 MG PO (08:27)
[2025-03-13] MEDS: NEURONTIN 100 MG PO ×3 (08:27→21:56)
[2025-03-13] MEDS: SENOKOT 8.6 MG PO ×2 (08:28→20:07)
[2025-03-13] MEDS: MAGNESIUM OXIDE 400 MG PO ×2 (08:28→20:02)
[2025-03-13] MEDS: MUCINEX 600 MG PO ×2 (08:28→20:02)
[2025-03-13] MEDS: PLAVIX 75 MG PO (08:28)
[2025-03-13] MEDS: LOPRESSOR 25 MG PO ×2 (08:29→20:01)
[2025-03-13] MEDS: ZYRTEC 10 MG PO (08:29)
[2025-03-13] MEDS: LIDOCAINE 4% PATCH 1 PATCH TOPICAL (08:30)
[2025-03-13] MEDS: PACERONE 200 MG PO ×3 (08:31→21:57)
[2025-03-13 10:04] LABS: Glucose - Point of Care 143 mg/dl (70-99)
[2025-03-13] MEDS: KCL 20 MEQ PO (10:09)
[2025-03-13] MEDS: LASIX 40 MG IV ×2 (10:09→16:40)
--- NOTE | 2025-03-13 11:16 | PTCARENOTE ---
Pt reassessed. No changes observed. Pt ambulated hallway with minimal assistance. Voided 600ml urine. Returned oob to chair. Insulin gtt continues per Glycemic protocol.
[2025-03-13 12:04] LABS: Glucose - Point of Care 86 mg/dl (70-99)
[2025-03-13] MEDS: NSS 500 IV (13:15)
[2025-03-13 14:22] LABS: Glucose - Point of Care 102 mg/dl (70-99)
--- NOTE | 2025-03-13 15:11 | PTCARENOTE ---
Pt received @0700 OOB in chair. AAOx3. Minimizing chest pain. Stating 2/10 chronic pain to neck and back. Lidocaine patch applied to upper back/necl. SaO2 94% on 4L. Fine crackles at bases. Incentive spirometry encouraged; witnessed use for 1,000ml.
Occasional nonproductive cough. 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 Trace anasarca. Mediastinal chest tube x2 to -20cm suction; serosanguineous output. Insulin gtt per glycemic protocol.
--- NOTE | 2025-03-13 15:17 | PTCARENOTE ---
Pt reassessed. Pacemaker wires removes by APRYL Galvez. Mediastinal chest tube x2 removed. Insulin gtt continues per glycemic protocol.
[2025-03-13 16:10] LABS: Glucose - Point of Care 108 mg/dl (70-99)
[2025-03-13] MEDS: GLUCOPHAGE 1000 MG PO (16:37)
[2025-03-13] MEDS: LIPITOR 40 MG PO (17:07)
[2025-03-13] MEDS: VITAMIN D3 (cholecalciferol) 50 MCG PO (17:07)
[2025-03-13 18:18] LABS: Glucose - Point of Care 135 mg/dl (70-99)
--- NOTE | 2025-03-13 18:28 | PTCARENOTE ---
Pt weaned to room air while oob in chair. SaO2 96%. After returning to bed, SaO2 88-90%. 2L NC reapplied and SaO2 to 93%.
--- NOTE | 2025-03-13 20:00 | PTCARENOTE ---
Resumed care of pt laying in bed AAOx3, pt with flat affect. HR in the 70's in NSR on the monitor. POX 93% on 2LO2 NC. Pt assisted OOB to bathroom. Pt standby assist ensuring sternal prec maintained. Pt voided without issues, NO BM at this time, pt
refuses any further bowel regimen at this time. Oral care provided, face washed. Pt requesting to sit in chair. POX while sitting up in chair 95 % on RA. Sternal incision with surg glue open to air, ecchymosis noted. Pt reports pain at tolerable
level. + bowel, round obese abd. Trace Anasarca. Palpable peripheral pulses present. Right IJ Cordis in place with NSS@kvo rate. Right forearm Int infusing Insulin gtt per protocol. Pt resting in chair per comfort. Call jensen in reach. Will continue
to monitor.
[2025-03-13] MEDS: KCL PO ×2 (20:02→20:59)
[2025-03-13] MEDS: LANTUS 0.25 UNITS SC (20:03)
[2025-03-13] MEDS: REMOVE LIDOCAINE PATCH 1 PATCH REMOVE (20:06)
[2025-03-13 20:07] LABS: Glucose - Point of Care 90 mg/dl (70-99)
--- NOTE | 2025-03-13 21:00 | PTCARENOTE ---
Insulin gtt discontinued per MD order. Pt had difficulty swallowing Potassium pill, Cardiac PA notified. No other changes in assessment noted at this time. Will continue to monitor.
[2025-03-13 21:08] LABS: Glucose - Point of Care 95 mg/dl (70-99)
[2025-03-13] MEDS: MELATONIN 3 MG PO (21:57)
[2025-03-13] MEDS: ROXICODONE 5 MG PO (23:24)
--- NOTE | 2025-03-13 23:28 | PTCARENOTE ---
Pt reports inability to get comfortable in bed. Pt repositioned. Pt reports sternal pain and discomfort. PRN pain medication administered as ordered. POX 85% on RA while in bed. [address]. Call jensen in reach. Will continue to monitor.
[2025-03-14] VITALS (10 sets, daily range): BP systolic 107–127; BP diastolic 52–62; BMI 35.1
--- NOTE | 2025-03-14 03:45 | W.PN.CT ---
Today's Communication / Plan
-
-pod #3
-no issues overnight
-wt is up 8 lbs on 03/13 from preop- continue bid Lasix
-wean off O2 as tolerated
-current meds (ASA, Plavix, Lipitor, Amio, Lopressor 25 bid, Mucinex, Protonix)
-encourage IS, OOB, ambulate
Assessment / Plan
-
- mv-CAD - s/p CABG x 3 (ARGUELLO-LAD; SVG-OM1, SVG-RPL) on 03/11/[address] Steve, pod #3
- MANUELA: not done due to Schatzki ring
- HTN
- HLD
- DM II ((A1C 6.6)
- Class I obesity (BMI 34)�
- GERD/Schatzki ring with dilatation
- Liver dz
- Herniated cervical discs C4-C7, s/p fusions in 1989
- Impaired swallowing since neck surgeries
- Diverticulosis
- Acute postop blood loss anemia - no transfusion
- Acute postop hypovolemia with subsequent hypervolemia
- Acute postop atelectasis
- Acute postop suspected pericarditis/+rub
Discussed patient care with: Nursing and Care Team
Subjective
-
Date of Service: March 14, 2025
Objective Data
-
PT Cancelled 03/12/25 22:05
INR Cancelled 03/12/25 22:05
APTT Cancelled 03/12/25 22:05
Vital Signs
Vital Signs
Temp Pulse Resp BP Pulse Ox
98.5 F 68 20 104/62 92
03/13/25 21:56 03/14/25 01:00 03/13/25 21:56 03/13/25 22:17 03/14/25 01:00
CT Intake/Output/Weight
03/13/25 03/13/25 03/14/25
06:59 18:59 06:59
Intake Total 246.4 / 1110.0 825.4 / 1346.2 520.8 / 1346.2
Output Total 645 / 1265 1055 / 1305 250 / 1305
Balance -398.6 / -155.0 -229.6 / 41.2 270.8 / 41.2
SaO2: 92
Physical Exam
-
General: Awake and AOx3
Cardiovascular: Regular rate & rhythm, No Murmurs and No Rub
Respiratory: Decreased Breath Sounds
Sternum: Stable
Incision: Clean, Dry and Intact
Extremities: Other (trace edema b/l)
Abdomen: soft, nontender, nondistended, + bowel sounds, no nausea, + flatus
Data Reviewed
-
Lab Results: Results Reviewed
Medications: Active Meds Reviewed
Chest X-Ray: Report Reviewed and Image Reviewed
ECG: Report Reviewed and Image Reviewed
[2025-03-14 05:46] LABS: Hematocrit 29.3 % (37.0-47.0); Hemoglobin 9.2 g/dL (12.0-16.0); Mean Corp Hgb Conc. 31.4 g/dL (33.0-37.0); Mean Corpuscular Volume 92.1 fL (81.0-99.0); Platelet Count 241 10^3/uL (130-400); Red Cell Dist. Width 14.5 % (11.5-14.5)
[2025-03-14] MEDS: TYLENOL 975 MG PO ×3 (05:47→21:47)
[2025-03-14 05:50] LABS: Blood Urea Nitrogen 33 mg/dl (7-17); Calcium 8.6 mg/dl (8.4-10.2); Carbon Dioxide 26 mmol/L (22-30); Chloride 104 mmol/L (98-107); Estimated Creatinine Clearance 69 ml/min; Glucose 107 mg/dl (70-99); Magnesium 2.4 mg/dl (1.6-2.3); Potassium 4.5 mmol/L (3.5-5.1); Sodium 134 mmol/L (135-145); eGFR > 60.00
--- NOTE | 2025-03-14 06:28 | PTCARENOTE ---
Pt slept intermittently t/o the night. Pt oob this am without difficulty. CHG bath provided. Pt set up in chair per comfort. Vital signs stable. Pt pox 93% on RA. Oxygen off while sitting up in chair. Call jensen in reach. Will continue to monitor.
[2025-03-14 07:57] LABS: Glucose - Point of Care 131 mg/dl (70-99)
--- NOTE | 2025-03-14 08:27 | W.PN.INTV ---
Today's Communication / Plan
Recommendations
Postoperative management as per CT surgery
Pain control
Removal of chest tubes per CT surgery
Goal BG 110�140
Encourage incentive spirometer
Goal MAP >65
Outpatient pulmonary office follow-up rec'd regarding her lung nodules.
Once patient transferred to CVICU�telemetry status, then campaign management senior manager service will sign off at that time.
Assessment
-
Assessment: 69-year-old female with a past medical history of DM type II, hypertension, mixed hyperlipidemia, history of C4-5 anterior fusion, history of kidney stones, Schatzki's ring s/p dilation, cold urticaria, and obesity who presented with
midsternal chest pain and increased belching. Her chest pain has been progressively worsening and she was sent to the ER from cardiology office. Patient saw Dr. De Jesus for initial visit on 03/09/2025, and Cardiology was concerned about her
accelerating symptoms with EKG changes in the inferior and anterolateral leads, and he recommended that she go to the ER at that time. EKG showed inferior anterolateral T wave inversions with ST depressions. Troponin was negative x 2 and then
0.017 on the third blood draw. Cardiology was consulted and patient was recommended for left heart catheterization. Patient was given 200 mg hydrocortisone, 50 mg Benadryl (due to contrast allergy with impending CTA chest) and nitroglycerin drip
started in the ER. Initial CTA chest showed pulmonary mosaic attenuation with a right upper lobe 5 mm lung nodule and a left upper lobe 3.5 mm nodule. Left heart catheterization on 03/09/2025 showed triple-vessel CAD with likely culprit ostial LCx
stenosis with mildly elevated LV filling pressures with no aortic stenosis. CT surgery consult recommended. Patient agreed to this procedure and today she underwent CABG x 3 with left atrial appendage ligation with atrial clip device. Patient
tolerated the procedure well and was transferred to the CVICU postoperatively with campaign management senior manager service consulted for additional management/recommendations.
Chronic conditions COGNOS ANALYST: GERD, hypertension, liver disease, Schatzki's ring s/p dilatation, hyperlipidemia, history of torn right medial meniscus s/p arthroscopy, lumbar fusion (2020), impaired swallowing since neck surgeries in the past,
diverticulosis, history of kidney stones, DM type II
Impression:
#Multivessel CAD s/p CABG x 3 (in situ ARGUELLO to LAD, Ao to RSVG to OM1, Ao to RSVG to RPLB) and left atrial appendage ligation with atrial clip � POD #3
#Anemia
#Multiple lung nodules with 5 mm in right upper lobe and 3.5 mm in left upper lobe
#DM type II c/b hyperglycemia (mild)
#Hypertension
#Hyperlipidemia
#Schatzki's ring
#GERD
Plan:
Patient was successfully extubated on 03/11/2025, and is now on room air (after being on 4L/min on 03/13), and currently breathing comfortably, saturating 96%; of note, she was on room air on 03/12
Maintain SpO2 >90-94%, using supplemental O2 as needed
prn nebulized bronchodilators - not currently bronchospastic
Encourage incentive q1hr while awake
Pressors/antihypertensive/inotropes/diuretics will be provided as needed
Maintain MAP>65
Replete electrolytes with K>4, Mg>2
Monitor chest tube output
Monitor hemoglobin
Monitor platelet count and coags
Transfuse blood products as needed to maintain Hb>7g/dL, plt>50k (given post-operative status)
CT surgery managing chest tubes (mediastinal chest tubes x 2; left pleural chest tube removed on 03/12)
Monitor blood sugar to maintain euglycemia with goal BG 110-140
Insulin drip now off; recommend to use ISS to maintain BG at goal as above
Aspiration precautions
DVT prophylaxis
Early nutrition
Early mobilization
Of note, I will arrange for outpatient pulmonary office follow-up regarding her lung nodules.
Once patient transferred to CVICU�telemetry status, then campaign management senior manager service will sign off at that time. Please call pulmonary service if there are any questions or concerns.
Total time spent today was 62 minutes for this encounter. Time includes reviewing laboratory test/imaging results, reviewing pertinent medical records, obtaining and reviewing medical history, performing an appropriate exam, ordering medications,
tests and procedures. Time also includes documentation of this encounter, coordinating patient care and communicating with other healthcare professionals. Total time does not include separately billed tests performed on this date of service.
Subjective Dataa
Subjective Data
Date of Service:
Date of Service: March 14, 2025
Chief Complaint: Silicator Follow Up
Subjective:
Patient seen this morning. Currently resting in bed in no acute distress. Heart rate 85, BP 117/61 and breathing comfortably on room air. Afebrile overnight.
Review of Systems
General: Other (Negative unless mentioned above)
Objective Data
Data Reviewed
Vital Signs / I&O / Oxygen:
Vital Signs
Temp Pulse Resp BP Pulse Ox
97.7 F 81 20 109/56 93
03/14/25 08:00 03/14/25 10:00 03/14/25 08:00 03/14/25 08:31 03/14/25 10:35
Intake and Output
03/13/25 03/14/25 03/15/25
06:59 06:59 06:59
Intake Total 1110.0 / 1110.0 1346.2 / 1346.2 250 / 250
Output Total 1265 / 1265 1605 / 1605 1000 / 1000
Balance -155.0 / -155.0 -258.8 / -258.8 -750 / -750
SaO2 [CPAP/PSV] 95
SaO2 [SIMV] 92
SaO2 93
Nasal Cannula flow liters per 2
minute
Physical Exam
General: Respiratory Distress (negative), Comfortable, Chills (negative) and Sweats (negative)
HEENT: Normocephalic and Anicteric
Cardiovascular: S1-S2, Regular Rhythm, Rub (Positive) and Peripheral Edema (negative)
Respiratory: Wheeze (negative), Rhonchi (negative) and Non-Labored Respirations
GI: Soft, Non Distended, Non Tender and Normal Bowel Sounds
Neurology: Awake, Alert, Oriented and Tremors (negative)
Skin: Warm, Dry, Cyanosis (negative) and Jaundice (negative)
Labs/Micro/Reports
Lab Data
03/14/25 04:34
03/14/25 04:34
Microbiology
03/11/25 07:00 Urine Urine Culture - Final
NO GROWTH
[2025-03-14] MEDS: FARXIGA 10 MG PO (08:28)
[2025-03-14] MEDS: GLUCOPHAGE 1000 MG PO ×2 (08:28→17:17)
[2025-03-14] MEDS: PLAVIX 75 MG PO (08:28)
[2025-03-14] MEDS: LOW STRENGTH ASPIRIN 81 MG PO (08:28)
[2025-03-14] MEDS: MUCINEX 600 MG PO ×2 (08:28→19:44)
[2025-03-14] MEDS: NEURONTIN 100 MG PO ×3 (08:28→21:47)
[2025-03-14] MEDS: PROTONIX 40 MG PO (08:28)
[2025-03-14] MEDS: KCL 20 MEQ PO ×2 (08:29→19:44)
[2025-03-14] MEDS: LASIX 40 MG IV ×2 (08:29→15:45)
[2025-03-14] MEDS: LANTUS 0.25 UNITS SC ×2 (08:30→21:51)
[2025-03-14] MEDS: PACERONE 200 MG PO ×3 (08:30→21:48)
[2025-03-14] MEDS: SENOKOT 8.6 MG PO ×2 (08:30→19:44)
[2025-03-14] MEDS: ZYRTEC 10 MG PO (08:30)
[2025-03-14] MEDS: BACTROBAN 2% OINTMENT 1 APPLIC NASAL ×2 (08:31→19:45)
[2025-03-14] MEDS: LOPRESSOR 25 MG PO ×2 (08:31→19:44)
[2025-03-14] MEDS: MAGNESIUM OXIDE 400 MG PO ×2 (08:32→21:52)
--- NOTE | 2025-03-14 09:00 | PTCARENOTE ---
Received patient for 7a-7p shift. patient AAOx3, oob in chair, without complaints. NSR on laboratory monitor. Denies pain at this time. Medications administered as ordered. Patient tolerating PO intake, voiding without issues. Ambulating in room with 1
person assist. Instructed patient to call for assistance prior to ambulation. Patient verbalized understanding, demonstrates use of call jensen system.
[2025-03-14] MEDS: LIDOCAINE 4% PATCH TOPICAL (10:21)
--- NOTE | 2025-03-14 11:45 | PTCARENOTE ---
Patient reassessed, assessment unchanged from previous. Patient AAOx3, without complaints. VSS, NSR on product sales engineer. Patient denies pain at this time. Tolerating po intake, voiding without issues. Ambulatory in room with 1 person assist. Patient
demonstrates use of call jensen system.
[2025-03-14 12:21] LABS: Glucose - Point of Care 111 mg/dl (70-99)
[2025-03-14] MEDS: NSS IV (15:46)
--- NOTE | 2025-03-14 15:58 | PTCARENOTE ---
Patient reassessed, assessment unchanged from previous. VSS, NSR on environmental monitoring specialist. Pt ambulated 150 feet in miller with 1 person assist, +LAMB. POX 92% after ambulation, hr max 111. Patient returned to bed without issues. Medication administered as
tolerated, pt denies pain at this time.
[2025-03-14 17:18] LABS: Glucose - Point of Care 142 mg/dl (70-99)
[2025-03-14] MEDS: VITAMIN D3 (cholecalciferol) 50 MCG PO (17:18)
[2025-03-14] MEDS: LIPITOR 40 MG PO (17:18)
[2025-03-14] MEDS: MELATONIN 3 MG PO (21:48)
[2025-03-14] MEDS: REMOVE LIDOCAINE PATCH 1 PATCH REMOVE (21:51)
[2025-03-14 21:52] LABS: Glucose - Point of Care 134 mg/dl (70-99)
[2025-03-15] VITALS (10 sets, daily range): BP systolic 108–142; BP diastolic 53–71; PULSE 75–76; O2SAT 96; BMI 34.5
--- NOTE | 2025-03-15 01:56 | W.PN.CT ---
Today's Communication / Plan
-
-pod #4
-no issues overnight
-continue bid Lasix
-wean off O2 as tolerated
-current meds (ASA, Plavix, Lipitor, Amio, Lopressor 25 bid, Mucinex, Protonix)
-encourage IS, OOB, ambulate
-discharge planning
Assessment / Plan
-
- mv-CAD - s/p CABG x 3 (ARGUELLO-LAD; SVG-OM1, SVG-RPL) on 03/11/[address] Steve, pod #4
- MANUELA: not done due to Schatzki ring
- HTN
- HLD
- DM II ((A1C 6.6)
- Class I obesity (BMI 34)�
- GERD/Schatzki ring with dilatation
- Liver dz
- Herniated cervical discs C4-C7, s/p fusions in 1989
- Impaired swallowing since neck surgeries
- Diverticulosis
- Acute postop blood loss anemia - no transfusion
- Acute postop hypovolemia with subsequent hypervolemia
- Acute postop atelectasis
- Acute postop suspected pericarditis/+rub
Subjective
Procedure
s/p CABG x 3 (ARGUELLO-LAD; SVG-OM1, SVG-RPL) on 03/11/[address] Steve
-
Date of Service: March 15, 2025
Objective Data
-
Lab Results
03/15/25 03:55
03/15/25 03:55
PT Cancelled 03/12/25 22:05
INR Cancelled 03/12/25 22:05
APTT Cancelled 03/12/25 22:05
Vital Signs
Vital Signs
Temp Pulse Resp BP Pulse Ox
97.8 F 66 18 112/65 94
03/14/25 20:00 03/15/25 04:00 03/14/25 15:29 03/15/25 04:00 03/15/25 03:00
CT Intake/Output/Weight
03/14/25 03/14/25 03/15/25
06:59 18:59 06:59
Intake Total 520.8 / 1346.2 490 / 940 450 / 940
Output Total 550 / 1605 1600 / 2550 950 / 2550
Balance -29.2 / -258.8 -1110 / -1610 -500 / -1610
SaO2: 93
Physical Exam
-
General: AOx3
Cardiovascular: Regular rate & rhythm
Respiratory: Decreased Breath Sounds
Sternum: Stable
Incision: Clean, Dry and Intact
Extremities: Edema +1
[2025-03-15 04:17] LABS: Hematocrit 25.5 % (37.0-47.0); Hemoglobin 8.3 g/dL (12.0-16.0); Mean Corp Hgb Conc. 32.5 g/dL (33.0-37.0); Mean Corpuscular Volume 87.3 fL (81.0-99.0); Platelet Count 288 10^3/uL (130-400); Red Cell Dist. Width 14.4 % (11.5-14.5)
[2025-03-15 04:30] LABS: Blood Urea Nitrogen 39 mg/dl (7-17); Calcium 8.4 mg/dl (8.4-10.2); Carbon Dioxide 28 mmol/L (22-30); Chloride 104 mmol/L (98-107); Estimated Creatinine Clearance 69 ml/min; Glucose 98 mg/dl (70-99); Magnesium 2.5 mg/dl (1.6-2.3); Potassium 4.3 mmol/L (3.5-5.1); Sodium 134 mmol/L (135-145); eGFR > 60.00
[2025-03-15] MEDS: TYLENOL 975 MG PO (06:21)
[2025-03-15 07:24] LABS: Glucose - Point of Care 108 mg/dl (70-99)
[2025-03-15] MEDS: LOW STRENGTH ASPIRIN 81 MG PO (07:49)
[2025-03-15] MEDS: GLUCOPHAGE 1000 MG PO (07:49)
[2025-03-15] MEDS: KCL 20 MEQ PO (07:49)
[2025-03-15] MEDS: PACERONE 200 MG PO (07:49)
[2025-03-15] MEDS: FARXIGA 10 MG PO (07:49)
[2025-03-15] MEDS: MUCINEX 600 MG PO (07:49)
[2025-03-15] MEDS: NEURONTIN 100 MG PO (07:49)
[2025-03-15] MEDS: BACTROBAN 2% OINTMENT 1 APPLIC NASAL (07:49)
[2025-03-15] MEDS: LOPRESSOR 25 MG PO (07:49)
[2025-03-15] MEDS: PROTONIX 40 MG PO (07:49)
[2025-03-15] MEDS: ZYRTEC 10 MG PO (07:49)
[2025-03-15] MEDS: LIDOCAINE 4% PATCH TOPICAL (07:50)
[2025-03-15] MEDS: SENOKOT PO (07:50)
[2025-03-15] MEDS: LANTUS 0.25 UNITS SC (07:50)
[2025-03-15] MEDS: PLAVIX 75 MG PO (07:50)
--- NOTE | 2025-03-15 08:13 | PN.DE.MGMTRT ---
Insulin Management
- -
03/15/2025: Diabetes Management Follow up
69 year old female electively admitted on 03/11/2025 for CABG due to triple-vessel coronary disease.
PMH: HTN, HLD, DM II, Diverticulosis, GERD/Schatzki ring with dilatation, Class I obesity (BMI 34)�, Liver dz, Herniated cervical discs C4-C7, s/p fusions in 1989, Impaired swallowing since neck surgeries. A1C 6.6%, Cr 0.9, eGFR >60
Pt awake, alert, oriented, sitting up in chair, offers no complains, able to discuss diabetes care plan. She is POD # 4 and doing well.
States prior to admission was taking Tresiba 25 units at breakfast and at 8pm, Metformin 1000mg with breakfast and 1500 with dinner and Ozempic 1 mg weekly on Tuesdays. States she has a glucose monitor and tests her sugars once a day. Instructed pt
to increase testing schedule to twice a day.
Patient transitioned off glycemic protocol on Saturday to her outpatient regimen.
Glucose has been stable and in range since transitioning off insulin infusion, 111 to 142, HS was 134, fasting 108 today
Will make no changes to current regimen. Cont Lantus 25 units BID and Metformin 1000mg with breakfast and 1500mg with dinner
Pt states she was taking Jardiance for a long time but struggled with recurrent UTIs and yeast infections and had to stop taking it. Will d/c Luizxiga.
Discussed with CVAPP team and Nurse. Will cont to follow.
Discharge meds: Tresiba 25 units at breakfast and at 8pm, Metformin 1000mg with breakfast and 1500 with dinner and Ozempic 1 mg weekly
Diabetes History
- -
Type of Diabetes: 2 requiring insulin
Pre-Admission Diabetes Regimen
03/15/25
03:55
Creatinine 0.9
Lab Results
Hemoglobin A1c 6.6 % (4.0-5.9) H 03/09/25 13:08
Insulin Pump Settings
IP Diabetes Regimen
03/14/25 03/14/25 03/14/25
12:19 17:16 21:51
Glucose
POC Glucose 111 H 142 H 134 H
03/15/25 03/15/25
03:55 07:18
Glucose 98
POC Glucose 108 H
Meal type: Dinner
Meal type: Breakfast
Amount consumed: 25%
Amount consumed: 90%
Patient Education
--- NOTE | 2025-03-15 08:28 | W.DCSUMMARY ---
Discharge Summary
Discharge Data
Date of Admission: 03/09/25
Date of Discharge: 03/15/25
-
Pending Results: No
Hospital Course
Primary care physician: Anne Worley
Outpatient sweetbread trimmer: Robson De Jesus
Inpatient consultants: [facility] Cardiology, pulmonary email deployment specialist, diabetes nurse practitioner
Procedures:
1. CABG
Primary Diagnosis:
1. triple vessel coronary artery disease
Secondary Diagnoses:
1. HTN
2. HLD
3. DM II (A1C 6.6)
4. Class I obesity (BMI 34)�
5. GERD/Schatzki ring with dilatation
6. Liver dz
7. Herniated cervical discs C4-C7, s/p fusions in 1989
8. Impaired swallowing since neck surgeries
9. Diverticulosis
10. Hx frequent UTIs
- Acute postop blood loss anemia - no transfusion
- Acute postop hypovolemia with subsequent hypervolemia
- Acute postop atelectasis
- Acute post op metabolic acidosis
- Acute postop respiratory insufficiency
- Acute postop suspected pericarditis/+rub
HPI: 69 y/o female with PMH for HTN, T2DM, HLD, and multiple back surgeries has been having intermittent chest discomfort and burping for a few months. She initially presented to [facility] cardiology with an abnormal EKG from PCP and
complaints of LAMB and chest discomfort. She was sent to [facility] ER from the sweetbread trimmer office. Troponins were negative in the ER. An echocardiogram was preformed and she was taken to the cardiac quality assurance lab technician, where a left heart catheterization revealed
multivessel coronary disease and CT surgery was consulted for surgical evaluation.
Hospital course: Patient was taken to the operating room and underwent CABG x 3 (ARGUELLO to LAD, SVG to OM1, SVG to RPL) by Dr. Staci Steve. No MANUELA was performed due to history of Shatski's ring. For further details, please refer to operative note.
Patient received no intraoperative blood products and returned to CVICU on Levophed at 2, Precedex, and insulin. CPAP ABG reported metabolic acidosis with base excess of -3.4. One half amp of bicarb was given and patient later extubated at 1640
the day of surgery. Aspirin and Plavix were initiated on postop day 1. Patient was diuresed with Lasix and delined. Temporary pacing wires were removed on postoperative day 2 along with chest tubes. Patient continued to diurese. White blood
cell count increased to 15.9 and patient was afebrile on postoperative day #3. White count decreased to 12.9 on postoperative day #4. A 2 view chest x-ray reported small left pleural effusion and patient will be discharged on Lasix 40 mg daily
along with potassium supplement. She is ordered a follow-up chest x-ray and BMP/CBC in 1 week. Farxiga will be discontinued on discharge as patient has a history of frequent UTIs. Patient experienced no dysrhythmias during her hospital stay and
amiodarone prophylaxis will be discontinued on discharge. Patient ambulated in halls with cardiac rehab. A prescription for a rolling walker was given to case management for discharge. Labs on day of discharge: WBC 12.3 (down from 15.9);
hemoglobin 8.3; platelets 288 K, potassium 4.3; creatinine 0.9; sodium 134.
Home medication changes:
Lipitor 20 mg was increased to 40 mg status post CABG
Nexium changed to Protonix while on Plavix
Discontinue losartan and amlodipine
Discharge Plan
-
Patient Disposition: Home (Routine Discharge)
Discharge Diagnosis/Procedures: CABG X 3 (03/11/25)
Condition: Good
Diet: Low Cholesterol, Low Sodium and Diabetic, Carb Controlled
Activity: No strenuous activity
Driving Restrictions: Not until seen by your Dr
Bathing Restrictions: OK to Shower
Blood Work: BMP/CBC in 1 week
Others Tests: CXR in 1 week
Other Services: Cardiac Rehab
Specialty Instructions: Weigh Daily- Call MD for wt gain/loss 3 lbs overnight/5 lbs in 1 week
Stand Alone Forms: DC Instructions- Cath/EP Lab
Referrals:
CT Transitional Care Nurse [Outside] - in two to three days
Referral Note:
The Cardiothoracic Transitional Care Nurse will call you to set up a visit in 1-2 days.
[facility]. Cardiac Rehab [Outside] - 05/03/25 1:00 pm
Referral Note: Cardiac Rehab Orientation appointment is on 04/02/26 at 1 pm�
The Cardiac Rehab gym is located on the first floor of the [facility].
Virginia Walker CRNP [Specified Professional Personl, Cardiology] - 04/20/25 10:40 am
Anne Worley CRNP [Family Provider, Internal Medicine] - in four to six weeks
Referral Note: Please make an appointment in four to six weeks.
Clifford Batista MD [Active, Pulmonary Medicine] - in four to six weeks
Referral Note: Follow-up needed for lung nodules seen on CT chest from 03/10/2025
Staci Steve MD [Active, Cardiac Surgery] - 04/14/25 10:45 am
Additional Discharge Medication Instructions: stop Losartan/HCTZ, amlodipine. Nexium changed to Pantoprazole while on clopidogrel, Lipitor 20mg increased to 40mg after CABG
Prescriptions:
New
atorvastatin 40 mg Tablet
40 mg PO QPM Qty: 30 2RF
acetaminophen 325 mg Tablet
650 mg PO Q4HPRN PRN (Reason: mild pain,headache,temp >101F ) Qty: 0 0RF
gabapentin 100 mg Capsule
100 mg PO TID Qty: 30 0RF
oxycodone 5 mg Tablet
5 mg PO Q4HPRN PRN (Reason: severe pain) Qty: 10 0RF
clopidogrel 75 mg Tablet
75 mg PO DAILY Qty: 30 2RF
pantoprazole 40 mg Tablet,Delayed Release (Dr/Ec)
40 mg PO DAILY Qty: 30 2RF
metoprolol succinate [Toprol XL] 50 mg tablet extended release 24 hr
50 mg PO DAILY Qty: 30 2RF
furosemide [Lasix] 40 mg tablet
40 mg PO DAILY Qty: 20 0RF
potassium chloride 10 mEq capsule, extended release
10 meq PO DAILY Qty: 20 0RF
Rx Instructions:
take with furosemide
Continued
cholecalciferol (vitamin D3) [Vitamin D3] 2,000 UNIT capsule
2,000 unit PO QPM
metformin 500 mg Tablet
1,000 mg PO DAILY
metformin 500 mg Tablet
1,500 mg PO QPM
cetirizine [Zyrtec] 10 mg Tablet
10 mg PO DAILY
aspirin 81 mg Tablet,Delayed Release (Dr/Ec)
81 mg PO QPM
Visbiome 112.5 billion cell Capsule
1 cap PO DAILY
insulin degludec [Tresiba FlexTouch U-100] 100 unit/mL (3 mL) Insulin Pen
25 unit SC BID
inulin 2 gram Tablet,Chewable
5 g PO DAILY
turmeric 400 mg Capsule
400 mg PO BID
Ozempic 1 mg/dose (4 mg/3 mL) Pen Injector
1 mg SC TU
biotin 2,500 mcg Tablet,Chewable
2,500 mcg PO DAILY
magnesium glycinate 120 mg Capsule
400 mg PO DAILY
Discontinued
esomeprazole magnesium [Nexium] 40 MG capsule,delayed release(DR/EC)
40 mg PO QPM
atorvastatin [Lipitor] 20 mg Tablet
20 mg PO QPM
amlodipine [Norvasc] 5 mg Tablet
5 mg PO QPM
losartan-hydrochlorothiazide 100-12.5 mg Tablet
1 tab PO DAILY
Discharge Orders:
Discharge Patient (As Directed); Ordered 03/15/25
Ordered By: Radha Zuniga
Care Plan Goals
Care Plan Goals:
Problem: Readiness for enhanced knowledge related to diagnosis and treatment plan
Goal: Understand your diagnosis and treatment plan needs, including medications if applicable.
Instructions: Know your diagnosis, underlying causes and treatment plan options, including medications if applicable. Consult with your health care team to learn about your diagnosis and treatment plan, including medications if applicable.
Discharge Date and Time
Print Language: KOREAN
--- NOTE | 2025-03-15 08:44 | PTCARENOTE ---
Patient received from shift engineer RN; AAOx3, responds spontaneously and follows commands; NSR on monitor; VSS; +1 B/L ankle edema; +1 DP and +2 radial pulses present; Shallow respirations; LAMB; Lungs diminished at bases; Occasional productive cough
with clear, thick sputum; SpO2 95-96% on RA; IS 750 ml; Patient with x2 BM overnight and refusing scheduled laxatives this AM; Urinating in bathroom; Surgical sites intact; RIJ Cordis with KVO infusing; PIVx2 - #18 RAC and #20 right forearm; RIJ
Cordis removed by RN at bedside - no complications noted; see nursing documentation for further details.
[2025-03-15] MEDS: LASIX 40 MG IV (09:45)
--- NOTE | 2025-03-15 11:10 | W.PN.CD ---
Today's Communication / Plan
-
Change furosemide to 40 mg PO daily.
Outpatient BMP/CBC in one week to monitor renal function, anemia stability.
Outpatient GLP-1 agonist is indicated.
Discharge planning.
Impression / Plan
-
Impression/Plan: 69F with HTN, IDDM, HLD, GERD, and orthopedic surgeries admitted from office with accelerating/unstable angina, found to have severe multivessel CAD.
Primary Production Solderer: Dr. De Jesus
#CAD
-Successful CABG 03/11/25.
-Continue routine post-surgical care as directed by CT Surgery.
-Continue ASA/clopidogrel, atorvastatin, metoprolol tartrate.
-Change furosemide to 40 mg PO daily. Outpatient BMP in one week.
-Post op anemia noted (dropped 0.9 g/dL today). Repeat CBC in one week (with the BMP) to monitor stability.
-Incentive spirometry.
-Ambulation.
#Hypertension
-Chronic, stable.
-Continue metoprolol tartrate.
#Type 2 diabetes mellitus
-Chronic, stable.
-HgbA1c 6.6%.
-Outpatient GLP-1 indicated (semaglutide).
#HLD
-Chronic.
-Total cholesterol = 149, LDL = 84, HDL = 30, Triglycerides = 175.
-Continue atorvastatin 40 mg.
-Goal LDL < 55.
#GERD
-Chronic, stable.
-Continue PPI.
#Obesity
-Chronic, stable, BMI 33.
-Weight loss recommended.
-There is now an indication for GLP-1 analog (outpatient).
Subjective/Interval History:
No acute events.
No subjective complaints.
CTS looking to discharge.
Weight is within 1.5 kg of baseline/mari.
SaO2 = 95% on RA.
DATA:
Cardiac Catheterization, 03/09/2025:
CORONARY ANGIOGRAPHY
Dominance: right
LM: Large vessel with severe distal LM bifurcation disease (Almaraz 0,1,1) as further described below.
LAD: Large vessel giving rise to a moderate caliber D1 and wrapping around the apex. There is eccentric distal LM vs. ostial LAD disease that is likely mild-moderate in severity. There is a long segment of disease in the proximal LAD up to 80%.
LCx: Large vessel giving rise to a moderate caliber OM1 and moderate caliber OM2. There is a focal 95% stenosis in the ostial LCx with TIMI2 flow distally. There is a smooth 30% stenosis leading into the body of OM2.
RCA: Large vessel giving rise to moderate caliber RPDA, moderate caliber RPL1, moderate caliber RPL2, and small RPL3. There is a long segment of up to 80% disease in the add-rs-xipugo RCA. The proximal RPDA has a long 40-50% stenosis.
CONCLUSIONS
1. Triple vessel coronary artery disease as defined with likely culprit ostial LCx stenosis.
2. Mildly elevated LV filling pressure and no aortic stenosis.
CT Chest, 03/10/2025:
IMPRESSION:
Fusiform aneurysmal dilatation of the ascending aorta measuring up to 4 cm.
Subtle pulmonary parenchymal mosaic attenuation which is nonspecific, though may be associated with obstructive small airway disease, or other nonspecific pulmonary parenchymal disease.
Right upper lobe 5 mm pulmonary nodule. Left upper lobe 3.5 mm nodule.
2.2 cm right adrenal benign adenoma.
Carotid Artery Duplex, 03/10/2025:
IMPRESSION: Negative for flow-limiting carotid stenosis. By velocity criteria, any internal carotid artery stenosis present is in the range of 0-49%.
TTE, 03/10/2025:
SUMMARY
1. Normal biventricular size and systolic function without regional wall motion abnormality. LVEF 68%.
2. No significant valvular disease.
3. Ascending aorta measures 4.2 cm.
4. No prior study available for comparison.
CABG, 03/11/2025:
Procedure(s) Performed:
1. Standard Sternotomy with Aortic and Right Atrial Cannulation
2. Internal Mammary Artery Harvesting, Left
3. Coronary artery bypass grafting x 3 (In situ ARGUELLO to LAD, Ao to RSVG to OM1, Ao to RSVG to RPLB)
4. Endoscopic vein harvesting of right saphenous vein
5. Left atrial appendage ligation with atriclip device
6. Placement of Temporary Ventricular Pacing Wires
Physical Exam
Vital Signs/Labs
Vital Signs
Temp Pulse Resp BP Pulse Ox
36.8 C 74 18 120/53 96
03/15/25 07:37 03/15/25 08:00 03/15/25 07:37 03/15/25 07:00 03/15/25 08:30
03/13/25 03/14/25 03/15/25
11:59 11:59 11:59
Actual Weight 100.3 kg 100.1 kg 98.4 kg
03/15/25 03:55
03/15/25 03:55
PT Cancelled 03/12/25 22:05
INR Cancelled 03/12/25 22:05
APTT Cancelled 03/12/25 22:05
Magnesium 2.5 mg/dl (1.6-2.3) H 03/15/25 03:55
Triglycerides 175 mg/dl (10-149) H 03/10/25 04:28
LDL Cholesterol, Calc 84 mg/dl 03/10/25 04:28
VLDL Cholesterol, Calc 35 mg/dl (0-30) H 03/10/25 04:28
HDL Cholesterol 30 mg/dl 03/10/25 04:28
Physical Exam
Constitutional: No acute distress and Comfortable
EENT: Anicteric and Moist mucous membranes
Cardiovascular: Rhythm & rate is regular, Pedal edema is absent, JVD pressure is normal, S1S2 is normal and Murmur/rub/gallop absent
Respiratory: Respiratory effort normal, Lungs clear to auscul., Wheeze Absent, Crackles Absent and Rhonchi Absent
GI: Soft, Distention absent, Flat, Non tender and Normal bowel sounds
Neuro/Psych: AO x 3
Data Reviewed
-
Date of Service: March 15, 2025
Medical Decision Making: Reviewed Test Results, Independent Historian Assessment and Test Interpretation
EKG: Tracing Personally Visualized and interpreted and Report Reviewed by me
Echo: Report Reviewed by me
X-Ray/CT/US/MRI/NUC/PET: Image Personally Visualized and interpreted and Report Reviewed by me
Medical Tests (PFT, Pathology etc): Image Personally Visualized and interpreted, Report Reviewed by me and Discussed with Physician
Labs: Labs Reviewed by me
Old Records: Reviewed
[2025-03-15] MEDS: NSS IV (11:17)
--- NOTE | 2025-03-15 11:23 | CM ---
Reviewed chart. Met with Mrs. Hicks to review discharge plans. She states she is feeling well and maybe able to go home soon. Received message she will need a rolling waker. Reviewed with physical therapy and they will be able to give her the
rolling walker. The script is on the front of the chart. Also reviewed the insurance will not cover a shower chair. We discussed a home visit by the Transitional Care Nurse She is agreeable to a home visit. Prior to admission she resides with her
spouse in a one story with two steps to enter. Prior to admission she was independent with ambulation and adls. She has crutches and a single point cane at home. She has a prescription plan and uses [facility] mail order and [facility] when needed. Asked to check on co-pay for Farxiga and Jardiance. Telephone call to [facility] to check on co-pay. Her co-pay would be zero for Farxiga or Jardiance. Medical work-up in progress. The discharge plan is to return home
with her spouse and a home visit by the Transitional Care Nurse when medically stable.
--- NOTE | 2025-03-15 12:55 | PTCARENOTE ---
Patient discharged home - states full understanding of discharge instructions and has no further questions at this time; VSS; PIVx2 and telemetry pack removed; Patient belongings taken with patient and spouse; RW brought by PT and taken with
patient; Patient showered with CHG soap; 2 view CXR completed; Patient taken by wheelchair to spouse's vehicle
== END 2025-03-15 13:05 | disposition home or self-care (01) | DRG 234 ==
LOC: CVICU 14:24
PROVIDERS: Clinical Nurse Specialist Acute Care; Physician Assistant Medical; Registered Nurse; Student in an Organized Health Care Education/Training Program; ADMITTING PHYSICIAN Family Medicine; ATTENDING PHYSICIAN Student in an Organized Health Care Education/Training Program; CONSULT PHYSICIAN Internal Medicine Cardiovascular Disease; CONSULT PHYSICIAN Internal Medicine Critical Care Medicine; EMERGENCY PHYSICIAN Emergency Medicine; FAMILY PHYSICIAN Nurse Practitioner Adult Health
PROC: 4A023N7 Measurement of Cardiac Sampling and Pressure, Left Heart, Percutaneous Approach (ICD-10-PCS; 2025-03-09)
PROC: B2111ZZ Fluoroscopy of Multiple Coronary Arteries using Low Osmolar Contrast (ICD-10-PCS; 2025-03-09)
PROC: 02L70CK Occlusion of Left Atrial Appendage with Extraluminal Device, Open Approach (ICD-10-PCS; 2025-03-11)
PROC: 5A1221Z Performance of Cardiac Output, Continuous (ICD-10-PCS; 2025-03-11)
PROC: 06BP0ZZ Excision of Right Saphenous Vein, Open Approach (ICD-10-PCS; 2025-03-11)
PROC: 021109W Bypass Coronary Artery, Two Arteries from Aorta with Autologous Venous Tissue, Open Approach (ICD-10-PCS; 2025-03-11)
PROC: 02100Z9 Bypass Coronary Artery, One Artery from Left Internal Mammary, Open Approach (ICD-10-PCS; 2025-03-11)
DX: I25.110 Atherosclerotic heart disease of native coronary artery with unstable angina pectoris (principal); D62 Acute posthemorrhagic anemia; J98.11 Atelectasis; E87.21 Acute metabolic acidosis; I30.8 Other forms of acute pericarditis; J90 Pleural effusion, not elsewhere classified; E86.1 Hypovolemia; E87.70 Fluid overload, unspecified; R06.89 Other abnormalities of breathing; E11.65 Type 2 diabetes mellitus with hyperglycemia; I10 Essential (primary) hypertension; E78.2 Mixed hyperlipidemia; E66.811 Obesity, class 1; K21.9 Gastro-esophageal reflux disease without esophagitis; K22.2 Esophageal obstruction; K76.9 Liver disease, unspecified; R91.8 Other nonspecific abnormal finding of lung field; Z68.34 Body mass index [BMI] 34.0-34.9, adult; Z87.440 Personal history of urinary (tract) infections; Z87.891 Personal history of nicotine dependence; Z79.4 Long term (current) use of insulin; Z82.49 Family history of ischemic heart disease and other diseases of the circulatory system; Z79.82 Long term (current) use of aspirin
CPT/HCPCS: 71045; 71046; 71250; 80048; 80053; 80061; 81003; 81015; 82248; 82330; 82565; 82805; 82810; 82947; 82962; 83036; 83735; 84132; 84302; 84484; 84520; 85014; 85018; 85025; 85027; 85049; 85610; 85730; 86803; 86850; 86900; 86901; 86920; 87086; 93005; 93306; 93458; 93880; 94002; 94003; 96365; 96375; 97163; 99152; 99153; 99285; C1769; C1894; Q9967

== ENCOUNTER → 2025-03-22 09:09 | Outpatient (REF) | payer BC, SELFPAY | LOC: RAD 09:09 | PROVIDERS: ATTENDING PHYSICIAN Student in an Organized Health Care Education/Training Program; FAMILY PHYSICIAN Nurse Practitioner Adult Health; REFERRING PHYSICIAN Internal Medicine Cardiovascular Disease | DX: J90 Pleural effusion, not elsewhere classified (principal) | CPT/HCPCS: 71046 ==